=== PATIENT | female | born 1950 | race Caucasian/White ===

== ENCOUNTER → 2016-09-09 | Outpatient (CLI) | payer MEDICARE ==
[~2016-09-09] MED LIST: ADVIL200 MG PO; CIPRO 500MG TA500 MG PO; DIOVAN HCT 25 M1 TA1 PO; FERROUSAL325 MG PO; HYZAAR 25 MG-101 TAB PO; LASIX 20MG TABL20 MG PO; LEVOXYL0.112 MG PO; METRONIDAZOLE500 MG PO; RESTORIL30 MG; RESTORIL30 MG PO; RISPERDAL 1M1 MG/TAB PO; TOPROL XL 50MG50 MG PO; ZOLOFT 100MG100 MG PO
== END ==
LOC: BHSO 15:24
DX: F20.9 Schizophrenia, unspecified (principal)

== ENCOUNTER 2016-11-10 10:54 | Outpatient (RCR) | payer MEDICARE ==
[2016-11-10] VITALS (8 sets, daily range): BP systolic 123–143; BP diastolic 49–84; PULSE 68–82; TEMP 98.1–98.6
[~2016-11-10 10:54] MED LIST changes: -ADVIL200 MG PO; -FERROUSAL325 MG PO; -HYZAAR 25 MG-101 TAB PO; -LASIX 20MG TABL20 MG PO; -RESTORIL30 MG; -RISPERDAL 1M1 MG/TAB PO; -TOPROL XL 50MG50 MG PO; -ZOLOFT 100MG100 MG PO
[2016-11-10 19:18] LABS: HEMATOCRIT 28.7 % (37.0-47.0); HEMOGLOBIN 8.9 g/dl (12.5-16.0)
== END 2016-11-10 19:30 | disposition home or self-care (01) ==
LOC: EUO 10:54
PROVIDERS: Internal Medicine
DX: D50.9 Iron deficiency anemia, unspecified (principal); E66.9 Obesity, unspecified
CPT/HCPCS: J7050; P9016

== ENCOUNTER 2016-12-03 15:00 | Outpatient (CLI) | payer MEDICARE ==
[~2016-12-03] VITALS: Ht 162.6 cm; Wt 159.0 kg
[2016-12-03 15:33] VITALS: BP 144/62; PULSE 76; TEMP 97.8
== END 2016-12-03 17:41 | disposition home or self-care (01) ==
LOC: EUO 15:00
DX: N18.4 Chronic kidney disease, stage 4 (severe) (principal); D63.1 Anemia in chronic kidney disease; Z79.899 Other long term (current) drug therapy
CPT/HCPCS: J0881

== ENCOUNTER 2016-12-10 13:00 | Day surgery (SDC) | payer MEDICARE ==
[~2016-12-10] VITALS: Ht 162.6 cm; Wt 161.4 kg
[2016-12-10] MEDS ORDERED: HYZAAR 25 MG-101 TAB PO (13:22)
[2016-12-10] MEDS ORDERED: TOPROL XL 50MG50 MG PO (13:23)
[2016-12-10] MEDS ORDERED: RISPERDAL 1M1 MG/TAB PO (13:24)
[2016-12-10] MEDS ORDERED: ZOLOFT 100MG100 MG PO (13:24)
[2016-12-10] MEDS ORDERED: FERROUSAL325 MG PO (13:25)
[2016-12-10] MEDS ORDERED: RESTORIL30 MG (13:25)
[2016-12-10] MEDS ORDERED: ADVIL200 MG PO (13:26)
[2016-12-10] MEDS ORDERED: LASIX 20MG TABL20 MG PO (13:26)
[2016-12-10 13:44] VITALS: BP 140/91; PULSE 82; TEMP 98.1
[2016-12-10 15:10] VITALS: BP 145/68; PULSE 78; TEMP 97.8
[2016-12-10 15:15] VITALS: BP 122/75; PULSE 76
[2016-12-10 15:30] VITALS: BP 120/69; PULSE 66
[2016-12-10 15:45] VITALS: BP 106/72; PULSE 63
== END 2016-12-10 16:40 | disposition home or self-care (01) ==
LOC: SDCO 13:00
DX: D12.5 Benign neoplasm of sigmoid colon (principal); D50.0 Iron deficiency anemia secondary to blood loss (chronic); K57.30 Diverticulosis of large intestine without perforation or abscess without bleeding; K44.9 Diaphragmatic hernia without obstruction or gangrene; I12.9 Hypertensive chronic kidney disease with stage 1 through stage 4 chronic kidney disease, or unspecified chronic kidney disease; E03.9 Hypothyroidism, unspecified; N18.9 Chronic kidney disease, unspecified; G47.33 Obstructive sleep apnea (adult) (pediatric); F41.9 Anxiety disorder, unspecified; F32.9 Major depressive disorder, single episode, unspecified; E66.01 Morbid (severe) obesity due to excess calories; Z90.49 Acquired absence of other specified parts of digestive tract
CPT/HCPCS: J2704; J7030

== ENCOUNTER → 2016-12-14 | Outpatient (CLI) | payer MEDICARE ==
[~2016-12-14] MED LIST changes: +ADVIL200 MG PO; +FERROUSAL325 MG PO; +HYZAAR 25 MG-101 TAB PO; +LASIX 20MG TABL20 MG PO; +RESTORIL30 MG; +RISPERDAL 1M1 MG/TAB PO; +TOPROL XL 50MG50 MG PO; +ZOLOFT 100MG100 MG PO
== END ==
LOC: COL.RAD 09:31
DX: N18.4 Chronic kidney disease, stage 4 (severe) (principal); Z90.5 Acquired absence of kidney

== ENCOUNTER 2017-01-11 13:07 | Outpatient (CLI) | payer MEDICARE ==
[~2017-01-11] VITALS: Ht 162.6 cm; Wt 162.2 kg
[~2017-01-11 13:07] MED LIST changes: -RESTORIL30 MG
[2017-01-11] MEDS ORDERED: ATARAX 25MG25 MG/TAB PO (13:29)
[2017-01-11] MEDS ORDERED: LEVOXYL0.125 MG PO (13:30)
[2017-01-11] MEDS ORDERED: PROVERA5 MG PO (13:32)
[2017-01-11 13:45] LABS: ALBUMIN 3.7 gm/dL (3.5-5.0); CREATININE, serum 3.66 mg/dL (0.52-1.25); PHOSPHOROUS 5.6 mg/dL (2.5-4.5); POTASSIUM 4.2 mmol/L (3.4-5.0)
[2017-01-11 14:01] LABS: MEAN CELL VOLUME 88 fl (80.0-100.0); MEAN CORPUSCULAR HGB CONC 30 g/dl (33.0-37.0); MEAN PLATELET VOLUME 9.3 fl (7.4-10.4); PLATELET COUNT 197 K/mm3 (130-400); RED BLOOD COUNT 2.73 M/mm3 (4.10-5.30); REDCELL DISTRIBUTION WIDTH-CV 18.6 % (11.5-14.5); WHITE BLOOD COUNT 6.2 K/mm3 (4.8-10.8)
[2017-01-11 14:03] LABS: ADD PATHOLOGY DIFF REVIEW NO; HEMOGLOBIN 7.3 g/dl (12.5-16.0); MEAN CORPUSCULAR HEMOGLOBIN 27 pg (27.0-31.0)
[2017-01-11 14:25] LABS: BAND 11 % (0-10); EOSINOPHIL 3 % (0-4); METAMYELOCYTE 1 % (0-0); MYELOCYTE 2 % (0-0); NEUTROPHILS 68 % (42.0-75.2); PLATELET ESTIMATE NORMAL (NORMAL); TOTAL CELLS COUNTED 100
[2017-01-11 14:29] VITALS: BP 145/71; PULSE 66; TEMP 98.1
[2017-01-11 14:50] VITALS: BP 96/57; PULSE 88; TEMP 98.2
== END 2017-01-11 15:10 | disposition home or self-care (01) ==
LOC: EUO 13:07
PROVIDERS: Internal Medicine Nephrology
DX: N18.4 Chronic kidney disease, stage 4 (severe) (principal); N17.8 Other acute kidney failure; D63.1 Anemia in chronic kidney disease
CPT/HCPCS: J0881

== ENCOUNTER 2017-02-17 14:09 | Outpatient (CLI) | payer MEDICARE ==
[~2017-02-17 14:09] MED LIST changes: +ATARAX 25MG25 MG/TAB PO; +LEVOXYL0.125 MG PO; +PROVERA5 MG PO
[2017-02-17 14:52] VITALS: BP 119/58; PULSE 69; TEMP 98.4
== END 2017-02-17 15:02 | disposition home or self-care (01) ==
LOC: EUO 14:09
DX: N18.5 Chronic kidney disease, stage 5 (principal); D63.1 Anemia in chronic kidney disease
CPT/HCPCS: J0881

== ENCOUNTER → 2017-03-03 | Outpatient (CLI) | payer MEDICARE | LOC: BHSO 15:08 | DX: F20.9 Schizophrenia, unspecified (principal) ==

== ENCOUNTER 2017-03-24 14:09 | Outpatient (CLI) | payer MEDICARE ==
[2017-03-24 14:25] VITALS: BP 128/50; PULSE 77; TEMP 97.4
== END 2017-03-24 16:16 | disposition home or self-care (01) ==
LOC: EUO 14:09
DX: N18.5 Chronic kidney disease, stage 5 (principal); D63.1 Anemia in chronic kidney disease
CPT/HCPCS: J0881

== ENCOUNTER 2017-06-16 15:14 | Outpatient (CLI) | payer MEDICARE ==
[~2017-06-16] VITALS: Ht 162.6 cm; Wt 165.0 kg
[2017-06-16 15:49] VITALS: BP 155/86; PULSE 65; TEMP 98.8
== END 2017-06-16 16:20 | disposition home or self-care (01) ==
LOC: EUO 15:14
DX: N18.5 Chronic kidney disease, stage 5 (principal); D63.1 Anemia in chronic kidney disease; E83.39 Other disorders of phosphorus metabolism
CPT/HCPCS: J0881

== ENCOUNTER → 2017-08-04 | Outpatient (CLI) | payer MEDICARE ==
[~2017-08-04] VITALS: Ht 162.6 cm; Wt 169.5 kg
[2017-08-04 13:25] LABS: MEAN CELL VOLUME 90 fl (80.0-100.0); MEAN CORPUSCULAR HGB CONC 30 g/dl (33.0-37.0); MEAN PLATELET VOLUME 8.6 fl (7.4-10.4); PLATELET COUNT 185 K/mm3 (130-400); RED BLOOD COUNT 2.62 M/mm3 (4.10-5.30); REDCELL DISTRIBUTION WIDTH-CV 15.1 % (11.5-14.5)
[2017-08-04 13:32] LABS: HEMATOCRIT 23.6 % (37.0-47.0); HEMOGLOBIN 7.1 g/dl (12.5-16.0); MEAN CORPUSCULAR HEMOGLOBIN 27 pg (27.0-31.0)
[2017-08-04 13:40] VITALS: BP 149/66; PULSE 72; TEMP 97.9
[2017-08-04 13:55] LABS: ANISOCYTOSIS 3+; BAND 4 % (0-10); EOSINOPHIL 4 % (0-4); HYPOCHROMIA 2+; LYMPHOCYTE 16 % (20.0-51.0); MICROCYTOSIS 1+; NEUTROPHILS 75 % (42.0-75.2); PLATELET ESTIMATE NORMAL (NORMAL)
[2017-08-04 13:56] LABS: POLYCHROMASIA 1+
== END ==
LOC: EUO 07-21 14:00
PROVIDERS: Internal Medicine
DX: N18.5 Chronic kidney disease, stage 5 (principal); D63.1 Anemia in chronic kidney disease
CPT/HCPCS: J0881

== ENCOUNTER 2017-08-11 12:48 | Outpatient (RCR) | payer MEDICARE ==
[2017-08-11 15:11] VITALS: BP 158/73; PULSE 70; TEMP 98.6
[2017-08-11 15:35] VITALS: BP 161/85; PULSE 68; TEMP 98.6
[2017-08-11 15:50] VITALS: BP 164/84; PULSE 66; TEMP 98.7
[2017-08-11 16:20] VITALS: BP 166/83; PULSE 69; TEMP 99
[2017-08-11 17:16] VITALS: BP 183/89; PULSE 70; TEMP 98.6
== END 2017-08-11 17:41 | disposition home or self-care (01) ==
LOC: EUO 12:48
DX: N18.5 Chronic kidney disease, stage 5 (principal); D63.1 Anemia in chronic kidney disease; N93.9 Abnormal uterine and vaginal bleeding, unspecified
CPT/HCPCS: J7050; P9016

== ENCOUNTER → 2017-08-25 | Outpatient (CLI) | payer MEDICARE ==
[~2017-08-25] VITALS: Ht 162.6 cm; Wt 166.0 kg
[2017-08-25 13:29] VITALS: BP 152/69; PULSE 73; TEMP 98.2
== END ==
LOC: EUO 08-18 13:00
DX: N18.5 Chronic kidney disease, stage 5 (principal); D63.1 Anemia in chronic kidney disease; N93.9 Abnormal uterine and vaginal bleeding, unspecified
CPT/HCPCS: J2916; J7040

== ENCOUNTER → 2017-09-01 | Outpatient (CLI) | payer MEDICARE | LOC: BHSO 15:41 | DX: F20.9 Schizophrenia, unspecified (principal) | CPT/HCPCS: G0463 ==

== ENCOUNTER 2017-09-15 15:07 | Outpatient (CLI) | payer MEDICARE ==
[~2017-09-15] VITALS: Ht 162.6 cm; Wt 165.0 kg
[2017-09-15 15:23] VITALS: BP 134/66; PULSE 66; TEMP 98.6
[2017-09-15 15:36] LABS: CALCIUM 9.7 mg/dL (8.4-10.2); CREATININE, serum 3.72 mg/dL (0.52-1.25); POTASSIUM 3.8 mmol/L (3.4-5.0)
== END 2017-09-15 16:01 | disposition home or self-care (01) ==
LOC: EUO 15:07
PROVIDERS: Internal Medicine
DX: N18.5 Chronic kidney disease, stage 5 (principal); D63.1 Anemia in chronic kidney disease
CPT/HCPCS: J0881

== ENCOUNTER 2017-10-27 14:58 | Outpatient (CLI) | payer MEDICARE ==
[~2017-10-27] VITALS: Ht 162.6 cm; Wt 169.0 kg
[2017-10-27 15:12] VITALS: BP 153/69; PULSE 74; TEMP 98.1
== END 2017-10-27 16:06 | disposition home or self-care (01) ==
LOC: EUO 14:58
DX: N18.5 Chronic kidney disease, stage 5 (principal); D63.1 Anemia in chronic kidney disease
CPT/HCPCS: J0881

== ENCOUNTER 2017-12-15 16:01 | Outpatient (CLI) | payer MEDICARE ==
[~2017-12-15] VITALS: Ht 162.6 cm; Wt 167.2 kg
[2017-12-15 16:40] VITALS: BP 137/70; PULSE 68; TEMP 98.4
== END 2017-12-15 16:41 | disposition home or self-care (01) ==
LOC: EUO 16:01
DX: N18.5 Chronic kidney disease, stage 5 (principal); D63.1 Anemia in chronic kidney disease
CPT/HCPCS: J0881

== ENCOUNTER 2018-03-02 12:40 | Outpatient (RCR) | payer MEDICARE ==
[~2018-03-02] VITALS: Ht 162.6 cm; Wt 164.2 kg
[2018-03-02] VITALS (8 sets, daily range): BP systolic 109–138; BP diastolic 50–78; PULSE 63–77; TEMP 97.8–98.1
== END 2018-03-02 19:00 | disposition home or self-care (01) ==
LOC: EUO 12:40
DX: N18.9 Chronic kidney disease, unspecified (principal); D63.1 Anemia in chronic kidney disease
CPT/HCPCS: J7050; P9016

== ENCOUNTER 2018-03-21 14:55 | Outpatient (CLI) | payer MEDICARE ==
[~2018-03-21] VITALS: Ht 162.6 cm; Wt 170.0 kg
[2018-03-21 15:26] VITALS: BP 133/59; PULSE 69; TEMP 98.4
[2018-03-21 16:02] VITALS: BP 113/56; PULSE 58; TEMP 98.4
== END 2018-03-21 15:36 | disposition home or self-care (01) ==
LOC: EUO 14:55
DX: N18.5 Chronic kidney disease, stage 5 (principal); D63.1 Anemia in chronic kidney disease
CPT/HCPCS: J0881

== ENCOUNTER 2018-03-30 10:03 | Day surgery (SDC) | payer MEDICARE ==
[~2018-03-30] VITALS: Ht 162.6 cm; Wt 169.5 kg
[2018-03-30] MEDS ORDERED: ADALAT CC30 MG PO (10:58)
[2018-03-30] MEDS ORDERED: LIPITOR 10MG10 MG PO (11:02)
[2018-03-30 11:17] VITALS: BP 144/67; PULSE 72; TEMP 97.5
[2018-03-30 12:22] VITALS: BP 126/66; PULSE 69; TEMP 97.7
[2018-03-30 12:30] VITALS: BP 115/60; PULSE 67
[2018-03-30 12:45] VITALS: BP 127/53; PULSE 68
[2018-03-30 13:00] VITALS: BP 126/62; PULSE 65
[2018-03-30 13:15] VITALS: BP 124/56; PULSE 63
== END 2018-03-30 14:20 | disposition home or self-care (01) ==
LOC: SDCO 10:03
DX: N95.0 Postmenopausal bleeding (principal); E03.9 Hypothyroidism, unspecified; E11.9 Type 2 diabetes mellitus without complications; E78.00 Pure hypercholesterolemia, unspecified; E78.5 Hyperlipidemia, unspecified; D64.9 Anemia, unspecified; F41.9 Anxiety disorder, unspecified; F32.9 Major depressive disorder, single episode, unspecified; M19.90 Unspecified osteoarthritis, unspecified site; G47.33 Obstructive sleep apnea (adult) (pediatric); I12.9 Hypertensive chronic kidney disease with stage 1 through stage 4 chronic kidney disease, or unspecified chronic kidney disease; N18.9 Chronic kidney disease, unspecified; E66.01 Morbid (severe) obesity due to excess calories; Z68.44 Body mass index [BMI] 60.0-69.9, adult; Z88.5 Allergy status to narcotic agent; Z88.2 Allergy status to sulfonamides; Z88.0 Allergy status to penicillin; Z88.8 Allergy status to other drugs, medicaments and biological substances; Z85.43 Personal history of malignant neoplasm of ovary; Z90.49 Acquired absence of other specified parts of digestive tract; Z90.5 Acquired absence of kidney; Z82.49 Family history of ischemic heart disease and other diseases of the circulatory system; Z83.3 Family history of diabetes mellitus; Z82.3 Family history of stroke
CPT/HCPCS: J2704; J7030

== ENCOUNTER → 2018-05-16 | Outpatient (CLI) | payer MEDICARE ==
[~2018-05-16] MED LIST changes: +ADALAT CC30 MG PO; +LIPITOR 10MG10 MG PO
== END ==
LOC: COL.RAD 13:53
DX: N85.2 Hypertrophy of uterus (principal); N26.1 Atrophy of kidney (terminal); K46.9 Unspecified abdominal hernia without obstruction or gangrene; E66.01 Morbid (severe) obesity due to excess calories; Z98.890 Other specified postprocedural states; Z90.49 Acquired absence of other specified parts of digestive tract; Z87.19 Personal history of other diseases of the digestive system; Z90.5 Acquired absence of kidney

== ENCOUNTER → 2018-05-18 | Outpatient (CLI) | payer MEDICARE | LOC: BHSO 15:02 | DX: F20.9 Schizophrenia, unspecified (principal) | CPT/HCPCS: G0463 ==

== ENCOUNTER → 2018-06-08 | Outpatient (CLI) | payer MEDICARE | LOC: EUO 06-06 15:00 | DX: D63.1 Anemia in chronic kidney disease (principal); N18.5 Chronic kidney disease, stage 5 | CPT/HCPCS: J0881 ==

== ENCOUNTER 2018-08-03 15:02 | Outpatient (CLI) | payer MEDICARE ==
[~2018-08-03] VITALS: Ht 162.6 cm; Wt 163.1 kg
[~2018-08-03 15:02] MED LIST changes: -LEVOXYL0.125 MG PO; +LEVOXYL0.15 MG PO
[2018-08-03] MEDS ORDERED: MEGACE 40MG40 MG/TAB PO (16:01)
[2018-08-03 16:04] VITALS: BP 147/78; PULSE 69; TEMP 98
== END 2018-08-03 16:04 | disposition home or self-care (01) ==
LOC: EUO 15:02
DX: N18.5 Chronic kidney disease, stage 5 (principal); D63.1 Anemia in chronic kidney disease
CPT/HCPCS: J0881

== ENCOUNTER 2018-08-24 16:01 | Outpatient (CLI) | payer MEDICARE ==
[~2018-08-24] VITALS: Ht 162.6 cm; Wt 162.5 kg
[~2018-08-24 16:01] MED LIST changes: +MEGACE 40MG40 MG/TAB PO
[2018-08-24 16:51] VITALS: BP 141/65; PULSE 62; TEMP 97.6
== END 2018-08-24 17:20 | disposition home or self-care (01) ==
LOC: EUO 16:01
DX: N18.5 Chronic kidney disease, stage 5 (principal); D63.1 Anemia in chronic kidney disease
CPT/HCPCS: J0881

== ENCOUNTER 2018-10-26 15:04 | Outpatient (CLI) | payer MEDICARE ==
[2018-10-26 15:30] VITALS: BP 135/81; PULSE 64; TEMP 98.2
== END 2018-10-26 16:09 | disposition home or self-care (01) ==
LOC: EUO 15:04
DX: D63.1 Anemia in chronic kidney disease (principal); N18.5 Chronic kidney disease, stage 5
CPT/HCPCS: J0882

== ENCOUNTER → 2018-11-09 | Outpatient (CLI) | payer MEDICARE | LOC: BHSO 15:05 | DX: F20.9 Schizophrenia, unspecified (principal) | CPT/HCPCS: G0463 ==

== ENCOUNTER 2018-12-08 15:05 | Outpatient (CLI) | payer MEDICARE ==
[~2018-12-08] VITALS: Ht 162.6 cm; Wt 158.0 kg
[2018-12-08 15:44] VITALS: BP 141/75; PULSE 64; TEMP 97.7
== END 2018-12-08 15:55 | disposition home or self-care (01) ==
LOC: EUO 15:05
DX: D63.1 Anemia in chronic kidney disease (principal); N18.5 Chronic kidney disease, stage 5
CPT/HCPCS: J0881; J0882

== ENCOUNTER → 2019-01-18 | Outpatient (CLI) | payer MEDICARE ==
[~2019-01-18] VITALS: Ht 162.6 cm; Wt 162.0 kg
[2019-01-18 16:41] VITALS: BP 148/85; PULSE 72; TEMP 98.3
== END ==
LOC: EUO 16:00
DX: N18.5 Chronic kidney disease, stage 5 (principal); D63.1 Anemia in chronic kidney disease
CPT/HCPCS: J0881

== ENCOUNTER 2019-03-02 15:38 | Outpatient (CLI) | payer MEDICARE ==
[~2019-03-02] VITALS: Ht 162.6 cm; Wt 160.8 kg
[2019-03-02 16:03] VITALS: BP 107/65; PULSE 63; TEMP 98
== END 2019-03-02 16:09 | disposition home or self-care (01) ==
LOC: EUO 15:38
DX: N18.5 Chronic kidney disease, stage 5 (principal); D63.1 Anemia in chronic kidney disease
CPT/HCPCS: J0882

== ENCOUNTER → 2019-03-22 | Outpatient (CLI) | payer MEDICARE | LOC: COL.VAS 03-08 13:15 | DX: N18.5 Chronic kidney disease, stage 5 (principal) | CPT/HCPCS: G0365 ==

== ENCOUNTER 2019-03-29 15:58 | Outpatient (CLI) | payer MEDICARE ==
[~2019-03-29] VITALS: Ht 162.6 cm; Wt 158.0 kg
[2019-03-29 16:25] VITALS: BP 130/90; PULSE 77; TEMP 97.7
== END 2019-03-29 18:00 | disposition home or self-care (01) ==
LOC: EUO 15:58
DX: N18.5 Chronic kidney disease, stage 5 (principal); D63.1 Anemia in chronic kidney disease
CPT/HCPCS: J0881

== ENCOUNTER 2019-05-31 15:05 | Outpatient (CLI) | payer MEDICARE ==
[~2019-05-31] VITALS: Ht 162.6 cm; Wt 159.2 kg
[2019-05-31 16:13] VITALS: BP 145/90; PULSE 104; TEMP 97.2
== END 2019-05-31 17:37 | disposition home or self-care (01) ==
LOC: EUO 15:05
DX: N18.5 Chronic kidney disease, stage 5 (principal); D63.1 Anemia in chronic kidney disease
CPT/HCPCS: J0881

== ENCOUNTER → 2019-06-14 | Outpatient (CLI) | payer MEDICARE | LOC: BHSO 13:59 | DX: F20.9 Schizophrenia, unspecified (principal) | CPT/HCPCS: G0463 ==

== ENCOUNTER 2019-06-28 15:05 | Outpatient (CLI) | payer MEDICARE ==
[~2019-06-28] VITALS: Ht 162.6 cm; Wt 156.7 kg
[2019-06-28 15:39] VITALS: BP 123/86; PULSE 78; TEMP 98.1
== END 2019-06-28 16:07 | disposition home or self-care (01) ==
LOC: EUO 15:05
DX: N18.5 Chronic kidney disease, stage 5 (principal); D63.1 Anemia in chronic kidney disease
CPT/HCPCS: J0881

== ENCOUNTER 2019-12-10 07:37 | Day surgery (SDC) | payer MEDICARE ==
[~2019-12-10] VITALS: Ht 162.6 cm; Wt 155.7 kg
[~2019-12-10 07:37] MED LIST changes: -ZOLOFT 100MG100 MG PO; +ZOLOFT 50MG50 MG PO
[2019-12-10 07:57] VITALS: BP 126/104; PULSE 74; TEMP 97.9
[2019-12-10] MEDS ORDERED: COUMADIN 5MG5 MG/TAB PO (08:31)
[2019-12-10] MEDS ORDERED: TRIAMCINOLONE A15 G3 TP (08:31)
[2019-12-10 08:39] LABS: CALCIUM 9.6 mg/dL (8.4-10.2); CREATININE, serum 4.91 (0.52-1.25); MAGNESIUM 2.1 mg/dL (1.6-2.3)
[2019-12-10 08:40] LABS: MEAN CELL VOLUME 91 fl (80.0-100.0); MEAN CORPUSCULAR HGB CONC 31 g/dl (33.0-37.0); MEAN PLATELET VOLUME 9.6 fl (7.4-10.4); PLATELET COUNT 179 K/mm3 (130-400); RED BLOOD COUNT 3.49 M/mm3 (4.10-5.30); REDCELL DISTRIBUTION WIDTH-CV 12.8 % (11.5-14.5)
[2019-12-10 08:46] LABS: HEMATOCRIT 31.8 % (37.0-47.0); HEMOGLOBIN 9.9 g/dl (12.5-16.0); MEAN CORPUSCULAR HEMOGLOBIN 28 pg (27.0-31.0)
[2019-12-10 08:47] LABS: INR 2.2 (0.8-3.0); PROTHROMBIN TIME 24.4 SECONDS (9.7-12.8)
[2019-12-10 08:51] LABS: PARTIAL THROMBOPLASTIN TIME 41.5 SECONDS (26.0-37.0)
[2019-12-10] MEDS ORDERED: MULTAQ400 MG PO (08:58)
[2019-12-10 09:05] VITALS: BP 99/53; PULSE 60
[2019-12-10 09:10] VITALS: BP 101/59; PULSE 58
[2019-12-10 09:10] LABS: THYROID STIMULATING HORMONE 1.29 uIU/mL (0.465-4.680)
[2019-12-10 09:25] VITALS: BP 108/69; PULSE 56
[2019-12-10 09:40] VITALS: BP 106/74; PULSE 57
[2019-12-10 09:55] VITALS: BP 125/69; PULSE 57
--- NOTE | 2019-12-10 10:15 | NUR ---
Pt tolerating PO without issue. DC instructions reviewed with pt and prior to discharge. Both express understanding. Pt is assisted to wheelchair, then out to car and care turned over to . IV was DC'd with catheter intact, and bleeding at site controlled.
== END 2019-12-10 10:15 | disposition home or self-care (01) ==
LOC: COL.CAR 07:37
PROVIDERS: Internal Medicine Cardiovascular Disease
DX: I48.0 Paroxysmal atrial fibrillation (principal); E78.5 Hyperlipidemia, unspecified; G47.33 Obstructive sleep apnea (adult) (pediatric); E11.22 Type 2 diabetes mellitus with diabetic chronic kidney disease; I12.9 Hypertensive chronic kidney disease with stage 1 through stage 4 chronic kidney disease, or unspecified chronic kidney disease; N18.9 Chronic kidney disease, unspecified; E03.9 Hypothyroidism, unspecified; F32.9 Major depressive disorder, single episode, unspecified; M19.90 Unspecified osteoarthritis, unspecified site; E66.01 Morbid (severe) obesity due to excess calories; Z90.5 Acquired absence of kidney; D63.1 Anemia in chronic kidney disease; Z88.5 Allergy status to narcotic agent; Z88.8 Allergy status to other drugs, medicaments and biological substances; Z88.0 Allergy status to penicillin; Z88.2 Allergy status to sulfonamides; Z79.01 Long term (current) use of anticoagulants
CPT/HCPCS: J2704

== ENCOUNTER → 2019-12-13 | Outpatient (CLI) | payer MEDICARE ==
[~2019-12-13] MED LIST changes: +COUMADIN 5MG5 MG/TAB PO; +MULTAQ400 MG PO; +TRIAMCINOLONE A15 G3 TP
== END ==
LOC: BHSO 14:47
DX: F20.9 Schizophrenia, unspecified (principal)
CPT/HCPCS: G0463

== ENCOUNTER 2020-04-29 22:07 | Inpatient (IN) | payer MEDICARE ==
[~2020-04-29] VITALS: Ht 165.1 cm; Wt 159.1 kg
[~2020-04-29 22:07] MED LIST changes: +MELATONIN5 M1 SL; +NYAMYC100000 U/G TP; +PACERONE400 MG PO
[2020-04-30 08:00] VITALS: BP 128/50; PULSE 79; TEMP 98.7
[2020-04-30 12:00] VITALS: BP 135/48; PULSE 75; TEMP 98.1
[2020-04-30 13:53] LABS: COLLECTION METHOD CLEAN CATCH
[2020-04-30 13:58] LABS: ALBUMIN 3.9 gm/dL (3.5-5.0); BILIRUBIN,TOTAL 0.5 mg/dL (0.0-1.0); CALCIUM 9.4 mg/dL (8.4-10.2); CREATININE, serum 5.83 (0.52-1.25); POTASSIUM 3.6 mmol/L (3.4-5.0); TOTAL PROTEIN 7.2 gm/dL (6.4-8.2)
[2020-04-30 13:59] LABS: TROPONIN-I 0.058 ng/mL (0.000-0.035)
[2020-04-30 14:00] LABS: PH 5 (5-8); URINE APPEARANCE Clear; URINE COLOR Yellow; URINE PROTEIN(semi-quant) 2+ (NEGATIVE)
[2020-04-30 14:01] LABS: MUCOUS Present /lpf; SQUAMOUS EPITHELIAL 0-2 /hpf; URINE BILIRUBIN Negative (NEGATIVE); URINE BLOOD 3+ (NEGATIVE); URINE GLUCOSE Negative (NEGATIVE); URINE KETONE Negative (NEGATIVE); URINE LEUKOCYTE ESTERASE Negative (NEGATIVE); URINE NITRATE Negative (NEGATIVE); URINE UROBILINOGEN Negative (NEGATIVE)
[2020-04-30 14:02] LABS: HEMATOCRIT 27.6 % (37.0-47.0); HEMOGLOBIN 8.6 g/dl (12.5-16.0); MEAN CELL VOLUME 93 fl (80.0-100.0); MEAN CORPUSCULAR HEMOGLOBIN 29 pg (27.0-31.0); MEAN CORPUSCULAR HGB CONC 29 g/dl (33.0-37.0); PLATELET COUNT 198 K/mm3 (130-400); RED BLOOD COUNT 2.96 M/mm3 (4.10-5.30); REDCELL DISTRIBUTION WIDTH-CV 14.9 % (11.5-14.5)
[2020-04-30 14:03] LABS: BAND 12 % (0-10); LYMPHOCYTE 1 % (20.0-51.0); MEAN PLATELET VOLUME 10.1 fl (7.4-10.4); METAMYELOCYTE 1 % (0-0); NEUTROPHILS 84 % (42.0-75.2); PLATELET ESTIMATE NORMAL (NORMAL)
[2020-04-30 14:04] LABS: HYPOCHROMIA 2+; INR 2.1 (0.8-3.0); PARTIAL THROMBOPLASTIN TIME 32.2 SECONDS (26.0-37.0); PROTHROMBIN TIME 23.5 SECONDS (9.7-12.8)
[2020-04-30 14:10] LABS: HEMATOCRIT 24.9 % (37.0-47.0); HEMOGLOBIN 7.8 g/dl (12.5-16.0); MEAN CELL VOLUME 92 fl (80.0-100.0); MEAN CORPUSCULAR HEMOGLOBIN 29 pg (27.0-31.0); MEAN CORPUSCULAR HGB CONC 31 g/dl (33.0-37.0); MEAN PLATELET VOLUME 10.2 fl (7.4-10.4); PLATELET COUNT 169 K/mm3 (130-400); RED BLOOD COUNT 2.71 M/mm3 (4.10-5.30); REDCELL DISTRIBUTION WIDTH-CV 14.8 % (11.5-14.5)
[2020-04-30 14:11] LABS: BASO % 0.2 % (0.0-2.0); EOS # 0.1 (0.0-0.7); EOS % 0.4 % (0-4.0); GRAN # 10.5 (1.4-6.5); GRAN % 85.4 % (42.2-75.2); LYMPH # 0.5 (1.2-3.4); LYMPH % 4.1 % (20.0-51.0); MONO # 0.7 (0.1-0.6); MONO % 5.7 % (1.7-9.3)
[2020-04-30 14:12] LABS: CALCIUM 9.1 mg/dL (8.4-10.2); CREATININE, serum 5.64 (0.52-1.25); POTASSIUM 3.5 mmol/L (3.4-5.0)
[2020-04-30 14:13] LABS: ALBUMIN 3.2 gm/dL (3.5-5.0); BILIRUBIN,TOTAL 0.4 mg/dL (0.0-1.0); THYROID STIMULATING HORMONE 6.45 uIU/mL (0.465-4.680); TOTAL PROTEIN 6.3 gm/dL (6.4-8.2); TROPONIN-I 0.067 ng/mL (0.000-0.035)
--- NOTE | 2020-04-30 15:30 | NUR ---
LUCAS met with the patient to discuss discharge plan. The patient lives in [place] with her , Jeffry (ph#[phone]). She reports needing some assistance with bathing and tolieting and has a walker. The patient's PCP is Dr. Adele Diaz and she receives her medications from [facility]. She reports no difficulties obtaining her meds. The patient does not have a DPOA-HC, but she was interested in obtaining a form. LUCAS provided. PT worked with the patient and recommend SNF. She was an assist of two. SW discussed this with the patient. The patient was agreeable to post-acute rehab and for SW to send referrals to the facilities in [place]. LUCAS contacted and faxed a referral to [facility], and [facility]. Awaiting screens.
[2020-04-30 16:00] VITALS: BP 139/52; PULSE 81; TEMP 97.9
[2020-04-30] MEDS ORDERED: PACERONE200 MG PO ×2 (16:32→16:34)
--- NOTE | 2020-04-30 18:00 | NUR ---
Patient has been doing well. No complaints of pain today. Her medication list has been updated. Went through the meds with patient, she could not remember her Losartan dose. She did not get up today because of her edema to feet and legs. No other changes at this time. Call light within reach. Dr Tai aware that she is admitted.
--- NOTE | 2020-04-30 19:30 | NUR ---
Pt. laying in bed at this time. Pt. is A&OX3, assessment complete. Pt. denies pain or other needs, call light within reach.
[2020-04-30] MEDS ORDERED: MULTAQ400 MG PO (19:41)
[2020-04-30] MEDS ORDERED: HYZAAR 25 MG-101 TAB PO (19:41)
[2020-04-30 20:25] VITALS: BP 129/46; PULSE 79; TEMP 98.7
[2020-04-30 23:39] VITALS: BP 143/57; PULSE 90; TEMP 98.9
[2020-05-01 04:38] VITALS: BP 133/58; PULSE 95; TEMP 99.2
[2020-05-01 07:27] LABS: MEAN CELL VOLUME 91 fl (80.0-100.0); MEAN CORPUSCULAR HGB CONC 31 g/dl (33.0-37.0); MEAN PLATELET VOLUME 10.2 fl (7.4-10.4); PLATELET COUNT 190 K/mm3 (130-400); RED BLOOD COUNT 2.77 M/mm3 (4.10-5.30)
[2020-05-01 07:43] LABS: HEMATOCRIT 25.3 % (37.0-47.0); HEMOGLOBIN 7.8 g/dl (12.5-16.0); MEAN CORPUSCULAR HEMOGLOBIN 28 pg (27.0-31.0)
[2020-05-01 07:52] LABS: CALCIUM 9.2 mg/dL (8.4-10.2); CREATININE, serum 5.99 (0.52-1.25); MAGNESIUM 2.2 mg/dL (1.6-2.3); PHOSPHOROUS 4.8 mg/dL (2.5-4.5); POTASSIUM 3.6 mmol/L (3.4-5.0)
[2020-05-01 08:26] VITALS: BP 125/52; PULSE 91; TEMP 97.6
[2020-05-01 09:04] LABS: BAND 6 % (0-10); EOSINOPHIL 2 % (0-4); HYPOCHROMIA 1+; LYMPHOCYTE 12 % (20.0-51.0); METAMYELOCYTE 1 % (0-0); NEUTROPHILS 73 % (42.0-75.2); PLATELET ESTIMATE NORMAL (NORMAL)
--- NOTE | 2020-05-01 09:45 | NUR ---
Initial visit; Patient thanked Flag Decorator for looking in on her, offering God's blessings and keeping her in map clerk's prayers.
[2020-05-01 12:38] VITALS: BP 108/62; PULSE 105; TEMP 97.7
[2020-05-01] MEDS ORDERED: LASIX 20MG TABL20 MG PO (13:14)
[2020-05-01] MEDS ORDERED: MYCOSTATIN100000 U/1 TP (13:16)
[2020-05-01] MEDS ORDERED: HYZAAR 25 MG-101 TAB PO (13:17)
[2020-05-01 14:22] LABS: URINE PROTEIN:CREAT RATIO 1.47 (0.00-0.14)
--- NOTE | 2020-05-01 14:46 | NUR ---
LUCAS attempted to contact the patient's to discuss discharge plan. LUCAS left him a voicemail. LUCAS contacted and faxed updates to [facility], and [facility].
[2020-05-01 16:19] VITALS: BP 124/64; PULSE 123; TEMP 97.4
--- NOTE | 2020-05-01 18:00 | NUR ---
Patient did ok today. She got up to the chair for about an hour this morning. Minimal complaints of pain. No complaints of nausea. She will be getting screened for skilled care. Her is worried about her coming home. Her edema and reddness to her right foot/ankle is getting worse today. No drainage or oozing from wound noted. No other changes at this time. Call light within reach.
[2020-05-01 19:12] LABS: IRON,SERUM 18 ug/dL (35-150)
[2020-05-01 19:21] LABS: TOTAL IRON BINDING CAPACITY 216 ug/dL (265-497)
--- NOTE | 2020-05-01 20:00 | NUR ---
Resting in bed. Assessment complete. Left lower lobe crackles present. Heart sound normals. Bowels active x4. Pulses present. Bilateral lower extremity edema +3. Right lower extremity erythema, swelling, pain, purplish discoloration with a large fluid filled blister to upper posterior lower extremity. Reports 7/10 left shoulder pain. Given PRN tylenol. Fistula to left upper arm bruit and thrill present. INT left hand without complication. Denies other needs at this time. Call light in reach.
[2020-05-01 21:25] VITALS: BP 117/62; PULSE 97; TEMP 98.9
--- NOTE | 2020-05-01 23:23 | NUR ---
Resting in bed. Denies needs. Call light in reach.
[2020-05-01 23:50] VITALS: BP 115/80; PULSE 110; TEMP 98.9
[2020-05-02 03:39] VITALS: BP 127/55; PULSE 87; TEMP 97.9
--- NOTE | 2020-05-02 06:24 | NUR ---
Patient required PRN tylenol for pain during night. Otherwise uneventful night. Resting in bed this AM. Patient refused repositioning during night.
[2020-05-02 06:55] LABS: MEAN CELL VOLUME 91 fl (80.0-100.0); MEAN CORPUSCULAR HGB CONC 30 g/dl (33.0-37.0); MEAN PLATELET VOLUME 9.9 fl (7.4-10.4); PLATELET COUNT 214 K/mm3 (130-400); RED BLOOD COUNT 2.78 M/mm3 (4.10-5.30)
[2020-05-02 07:03] LABS: HEMATOCRIT 25.4 % (37.0-47.0); HEMOGLOBIN 7.7 g/dl (12.5-16.0); MEAN CORPUSCULAR HEMOGLOBIN 28 pg (27.0-31.0)
[2020-05-02 07:10] LABS: CALCIUM 9.1 mg/dL (8.4-10.2); CREATININE, serum 5.98 (0.52-1.25); POTASSIUM 3.8 mmol/L (3.4-5.0)
--- NOTE | 2020-05-02 07:12 | NUR ---
Report given to LISBETH Dow
[2020-05-02 07:20] VITALS: BP 99/58; PULSE 136; TEMP 97.6
[2020-05-02 09:17] VITALS: BP 108/57; PULSE 92
--- NOTE | 2020-05-02 10:31 | NUR ---
Follow-up visit; Patient states she is doing better and thanked Food Service Attendant for looking in on her and keeping her in Food Service Attendant's prayers.
[2020-05-02 11:26] VITALS: BP 102/48; PULSE 75; TEMP 97.9
--- NOTE | 2020-05-02 14:59 | NUR ---
The patient's , Jeffry, returned LUCAS's phone call. LUCAS updated him on the d/c plan for post-acute rehab. Jeffry is in agreement to the plan. The patient is to have surgery on Tuesday. LUCAS contacted and faxed updates to [facility], [facility], and [facility]. Catrachita, at [facility], reports that they will continue to follow the patient. They will want to know plans for dialysis.
[2020-05-02 15:07] LABS: INR 2.4 (0.8-3.0); PROTHROMBIN TIME 27.3 SECONDS (9.7-12.8)
[2020-05-02 16:14] VITALS: BP 118/56; PULSE 52; TEMP 97.3
--- NOTE | 2020-05-02 19:12 | NUR ---
Patient has done well today. She was up to the chair this am. Hospitalist & Bedros rounded. Medication change made. Patient Right leg in pain, Tylenol Prn. Right leg wrapped with jacob wrap per patient request & okayed with . Blister behind patient right leg has been leaking fluid, abd on wound. Int to Right hand. Patient was provided incontinece care of a stool. Hines to DD with adequate urine output. Anesthesia rounded for procedure Tuesday, Dr. Perez notified with Inr level & Rechecked on tuesday ordered
[2020-05-02 19:49] VITALS: BP 107/60; PULSE 89; TEMP 97.5
[2020-05-03] VITALS (7 sets, daily range): BP systolic 97–148; BP diastolic 57–89; PULSE 71–137; TEMP 97.7–98.2
--- NOTE | 2020-05-03 06:00 | NUR ---
Patient has been resting well most the night. Minimal complaints of pain. No complaints of nausea. Minimal drainage from her blister throughout the night. RT changed her tubing for her cpap so she could wear it. Her old tubing was too old and the strap wouldn't stay in place. No other changes at this time. Call light within reach.
[2020-05-03 08:04] LABS: MEAN CELL VOLUME 92 fl (80.0-100.0); MEAN CORPUSCULAR HGB CONC 30 g/dl (33.0-37.0); MEAN PLATELET VOLUME 9.8 fl (7.4-10.4); PLATELET COUNT 250 K/mm3 (130-400); RED BLOOD COUNT 2.85 M/mm3 (4.10-5.30)
[2020-05-03 08:17] LABS: CALCIUM 9.2 mg/dL (8.4-10.2); CREATININE, serum 6.11 (0.52-1.25); POTASSIUM 3.8 mmol/L (3.4-5.0)
[2020-05-03 08:18] LABS: HEMATOCRIT 26.1 % (37.0-47.0); HEMOGLOBIN 7.9 g/dl (12.5-16.0); MEAN CORPUSCULAR HEMOGLOBIN 28 pg (27.0-31.0)
[2020-05-03 08:37] LABS: INR 3.5 (0.8-3.0); PROTHROMBIN TIME 39.3 SECONDS (9.7-12.8)
[2020-05-03 08:57] LABS: BAND 3 % (0-10); EOSINOPHIL 3 % (0-4); LYMPHOCYTE 17 % (20.0-51.0); NEUTROPHILS 75 % (42.0-75.2); PLATELET ESTIMATE NORMAL (NORMAL)
--- NOTE | 2020-05-03 09:45 | NUR ---
PATIENT SHIFT ASSESSMENT COMPLETE. AM MEDICATIONS ADMINISTERED. PATIENT REPOSITIONED IN BED. PATIENT GIVEN PRN PO TYLENOL FOR PAIN IN THE RLE RATED AN 8/10 ON A 0-10 SCALE THAT IS ACHY AND WORSENS WITH MOVEMENT. LD AND JAIN CARE PROVIDED. SKIN FOLDS CLEANED WITH BATH WIPES AND DESENEX POWDER APPLIED. CALL LIGHT WITHIN REACH. PATIENT DENIES ANY OTHER NEEDS AT THIS TIME.
--- NOTE | 2020-05-03 14:40 | NUR ---
RIGHT LOWER LEG DRESSING REMOVED WITH ZACH SANTOS. JEFF WRAP DRESSING WAS SATURATED THROUGHOUT THE DRESSING. SEROUS DRAINAGE PRESENT ON ABD PAD WHEN REMOVED. BLISTER TO POSTERIOR CALF INTACT, BUT IS LEAKING SEROUS DRAINAGE. RLE DRESSED WITH 2 NON-ADHERANT GAUZE PADS, 2 ABD PADS, SOFT ROLL AND TWO JEFF WRAPS FROM FOOT TO ABOVE THE KNEE. PATIENT TOLERATED WELL. PILLOW UNDER RLE OFFERED AND REFUSED BY PATIENT. FOOT OF BED ELEVATED. CALL LIGHT IN REACH. PATIENT DENIES ANY NEEDS AT THIS TIME.
--- NOTE | 2020-05-03 17:37 | NUR ---
PATIENT REPORTS THAT THE PAIN IN HER RIGHT LEG IN MUCH BETTER THIS EVENING. PATIENT RATES IT A 3/10 AT REST AND STATES THAT IT GETS WORSE WITH ACTIVITY. SCD'S APPLIED TO BLE. CALL LIGHT IN REACH. PATIENT DENIES ANY OTHER NEEDS AT THIS TIME.
--- NOTE | 2020-05-03 21:17 | NUR ---
Pt currenty sitting up in bed watching television. Pt stated that she was having pain in her right leg. Pt was given Tylenol at this time. Pt has no other concerns at this time. Pt was about to eat her dinner and is drinking fluids. Pt right leg does have some redness on her knee and on her hip area. Pt does have a jacob wrap on her right leg and it is clean dry and intact. Pt left leg does have some excoriation in her groin and inner thigh area, dexsenex powder was applied at this time. Pt has her call light within reach and her bed is in lowest posiition.
[2020-05-04 00:25] VITALS: BP 142/62; PULSE 93; TEMP 98.5
--- NOTE | 2020-05-04 01:38 | NUR ---
Pt currently resting in bed. Tele called to let me know that pt heart rate was as high as 120. Pt heart rate is currently at 90. Pt is going back to sleep but did wake up when I wanted to check her heart rate. She was moving around in bed. I'm currently at pt bedside and did notice that pt heart rate did get as high as 122 but is currently staying in the 90's. She has her call light within reach and her bed is in lowest position.
[2020-05-04 04:32] VITALS: BP 145/54; PULSE 89; TEMP 97.8
--- NOTE | 2020-05-04 06:31 | NUR ---
Pt resting in bed. She was able to take her morning medications and she has no concerns at this time.
[2020-05-04 06:53] LABS: MEAN CELL VOLUME 91 fl (80.0-100.0); MEAN CORPUSCULAR HGB CONC 31 g/dl (33.0-37.0); MEAN PLATELET VOLUME 9.7 fl (7.4-10.4); PLATELET COUNT 273 K/mm3 (130-400); RED BLOOD COUNT 2.87 M/mm3 (4.10-5.30); REDCELL DISTRIBUTION WIDTH-CV 14.8 % (11.5-14.5)
[2020-05-04 06:54] LABS: PROTHROMBIN TIME 22.5 SECONDS (9.7-12.8)
[2020-05-04 06:58] LABS: HEMATOCRIT 26.1 % (37.0-47.0); MEAN CORPUSCULAR HEMOGLOBIN 28 pg (27.0-31.0)
[2020-05-04 07:05] LABS: CREATININE, serum 5.83 (0.52-1.25); POTASSIUM 3.8 mmol/L (3.4-5.0)
[2020-05-04 07:26] LABS: BAND 3 % (0-10); BASOPHIL 3 % (0-2); EOSINOPHIL 1 % (0-4); LYMPHOCYTE 14 % (20.0-51.0); NEUTROPHILS 73 % (42.0-75.2)
[2020-05-04 07:27] LABS: HYPOCHROMIA 3+; PLATELET ESTIMATE NORMAL (NORMAL)
[2020-05-04 07:29] VITALS: BP 150/93; PULSE 86; TEMP 98.2
--- NOTE | 2020-05-04 08:05 | NUR ---
UPON ENTRY TO THE ROOM THE PATIENT IS SITTING UP IN THE BEDSIDE CHAIR FINISHING BREAKFAST. PATIENT SHIFT ASSESSMENT COMPLETE. AM MEDICATIONS ADMINISTERED. TYLENOL GIVEN WITH AM MEDS. PATIENT REPORTS THAT THE PAIN IN HER RIGHT LEG IS WORSE THIS MORNING. PATIENT REQUESTING TO LEAVE DRESSING OFF OF HER LEG TO LET IT BREATHE FOR A BIT. BLISTER TO THE BACK OF THE CALF IS DRAINING A MODERATE AMOUNT OF SEROUS FLUID. BLISTER IS FLATTER TODAY VS YESTERDAYS ASSESSMENT. ERYTHEMA TO RIGHT FOOT LEG AND DISTAL PORTION OF RIGHT UPPER THIGH. ECCHYMOSIS TO LEFT PINKY TOE NOTED. RLE LEFT OPEN TO AIR WITH CHUCKS PAD UNDERNEATH. CALL LIGHT WITHIN REACH. PATIENT DENIES ANY OTHER NEEDS AT THIS TIME. ZACH SANTOS NOTIFIED THAT THE PATIENTS LEG IS KULDIP FOR HOSPITALISTS TO ASSESS DURING ROUNDING.
--- NOTE | 2020-05-04 12:20 | NUR ---
PATIENT REPORTS THAT HER PAIN IS MUCH MORE TOLERABLE AFTER TAKING PRN NORCO. PATIENTS RLE RE-DRESSED WITH THREE NON-ADHERANT PADS, TWO ABD PADS, TWO GAUZE ROLLS AND TWO JEFF WRAP DRESSINGS, WRAPPED FROM FOOT TO DISTAL PORTION OF THE RIGHT UPPER THIGH. PATIENT TOLERATED WELL. PATIENT ASSISTED BACK TO BED WITH TWO ASSIST AND A WALKER. PATIENT REPOSITIONED IN BED. LD CARE AND CATHETER CARE PROVIDED FOR PATIENT. PANNUS AND INNER THIGHS CLEANED WITH BATH WIPES. SKIN DRIED AND DESENEX POWDER APPLIED TO PANNUS AND INNER THIGHS. CALL LIGHT WITHIN REACH. PATIENT DENIES ANY OTHER NEEDS AT THIS TIME.
[2020-05-04 12:39] VITALS: BP 130/68; PULSE 84; TEMP 98
--- NOTE | 2020-05-04 15:37 | NUR ---
PATIENT RESTING QUIETLY IN BED. PATIENT REPORTS PAIN IS CURRENTLY A A 4/10 ON A 0-10 SCALE AFTER HER SECOND DOSE OF NORCO. PATIENT DENIES ANY NEEDS AT THIS TIME.
[2020-05-04 16:32] VITALS: BP 117/56; PULSE 66; TEMP 97.6
[2020-05-04 19:50] VITALS: BP 101/48; PULSE 82; TEMP 98.1
--- NOTE | 2020-05-04 20:00 | NUR ---
Report received, assumed care for shift commander. A&Ox3. States earlier dose of pain meds has decreased pain to 1/10. Requesting HS meds/assessment be completed around 2300 so that she can get some rest. Will do assessment and meds at that time. Call light in reach. Will monitor.
--- NOTE | 2020-05-04 23:30 | NUR ---
Assessment complete. VS remain stable. A&Ox3. Rating pain 5/10 on pain scale to right lower extremity. Described pain as a constant throbbing with intermittent sharp stabs. Hydrocodone given per dr order. RIght lower extremity with jacob/gauze-CDI. Refusing to elevate. Plan of care discussed for NPO after midnight for procedures in AM. Denies questions/concerns. Call light in reach. Will monitor.
[2020-05-05 00:05] VITALS: BP 111/54; PULSE 86; TEMP 97.4
--- NOTE | 2020-05-05 02:54 | NUR ---
Resting eyes closed. No s/s of pain/discomfort noted. Call light in reach. Will monitor.
[2020-05-05 03:36] VITALS: BP 117/55; PULSE 80; TEMP 97.6
[2020-05-05 07:20] VITALS: BP 138/52; PULSE 90; TEMP 97.9
[2020-05-05 07:34] LABS: MEAN CELL VOLUME 94 fl (80.0-100.0); MEAN CORPUSCULAR HGB CONC 29 g/dl (33.0-37.0); MEAN PLATELET VOLUME 9.5 fl (7.4-10.4); PLATELET COUNT 296 K/mm3 (130-400); RED BLOOD COUNT 2.87 M/mm3 (4.10-5.30)
[2020-05-05 07:37] LABS: INR 1.7 (0.8-3.0); PROTHROMBIN TIME 18.8 SECONDS (9.7-12.8)
[2020-05-05 07:42] LABS: HEMATOCRIT 26.9 % (37.0-47.0); HEMOGLOBIN 7.9 g/dl (12.5-16.0); MEAN CORPUSCULAR HEMOGLOBIN 28 pg (27.0-31.0)
[2020-05-05 07:58] LABS: ALBUMIN 3.2 gm/dL (3.5-5.0); CREATININE, serum 6.44 (0.52-1.25); PHOSPHOROUS 6.1 mg/dL (2.5-4.5); POTASSIUM 3.9 mmol/L (3.4-5.0)
--- NOTE | 2020-05-05 08:01 | NUR ---
Lying in bed with eyes open. Alert and oriented x4. Denies pain. Is aware that she is NPO today for procedure. Hines to dependent drainage with clear yellow urine. Pannus red, apply Densenx as prescribed. Discuss repositioning in bed to alleviate pressure on backside. Patient denies needs.
[2020-05-05 08:31] LABS: ANISOCYTOSIS 1+; BAND 17 % (0-10); EOSINOPHIL 1 % (0-4); HYPOCHROMIA 3+; LYMPHOCYTE 7 % (20.0-51.0); METAMYELOCYTE 3 % (0-0); MYELOCYTE 3 % (0-0); NEUTROPHILS 61 % (42.0-75.2); PLATELET ESTIMATE NORMAL (NORMAL)
--- NOTE | 2020-05-05 08:38 | NUR ---
Patient is having pain in her legs and would like pain medication. Administer pain medication as prescribed. Patient denies additional needs.
--- NOTE | 2020-05-05 09:49 | NUR ---
Review consent with the patient. Patient verbalizes understanding and signs consent. WIll place on chart.
[2020-05-05 11:20] VITALS: BP 112/69; PULSE 105; TEMP 97.4
--- NOTE | 2020-05-05 11:47 | NUR ---
Patient to procedure via bed at this time.
--- NOTE | 2020-05-05 15:02 | NUR ---
Patient up from surgery and to dialysis room via bed. Patient is alert and oriented x4. Denies pain. Dressing to AV fistula on left upper arm CDI. Patient now has a dialysis catheter to her right upper chest and the dressing is CDI. There was a small incision that was made to right side of neck, bruising at site, no redness/swelling/discharge, glue intact. Patient denies needs or concerns at this time.
[2020-05-05 15:27] VITALS: BP 124/72; PULSE 92; TEMP 97.8
--- NOTE | 2020-05-05 15:27 | NUR ---
Patient still in dialysis. Doing well at this time. Denies pain or further needs.
--- NOTE | 2020-05-05 16:44 | NUR ---
Excavating Machine Operator faxed updates to [facility], [facility],and [facility].
--- NOTE | 2020-05-05 17:34 | NUR ---
Patient back to room, dialysis completed. Patient feeling tired. Having some pain in her leg and requests pain medication. Administer pain medication as prescribed. Patient sitting up in bed ready for supper. Denies additional needs.
--- NOTE | 2020-05-05 18:16 | NUR ---
Lying in bed watching TV, talking on phone, and working on eating her dinner. Pain is getting better. Denies additional needs at this time.
--- NOTE | 2020-05-05 20:00 | NUR ---
Report received, assumed care for security shift supervisor. Assessment complete. VS stable. A&Ox3. Denies pain/nausea/shortness of breath at rest. States she does get short of air with activity. Dressing to new dialysis cath to right chest CDI. Fistula to left forearm also CDI. Noted to have edema to both upper and lower extremities-+2. Dressing to right lower extremity -jacob/gauze-CDI. No drainage noted to chux underneath. Hines cath with clear yellow urine. Plan of care discussed for this shift to include HS meds/bedside glucose/fluid restriction/calling for questions/concerns. Verbalizes understanding/denies questions/concerns. States she will call when she is ready for her HS meds. Call light in reach. WIll monitor.
[2020-05-05 20:05] VITALS: BP 103/61; PULSE 85; TEMP 97.6
--- NOTE | 2020-05-05 22:15 | NUR ---
Called with c/o pain to right lower extremity-rating pain 6/10 on pain scale-described as constant ache with burning/throbbing. Also states her left forearm is sore. Hydrocodone given per dr bro. Will monitor.
[2020-05-06 00:17] VITALS: BP 110/64; PULSE 74; TEMP 98.4
--- NOTE | 2020-05-06 01:00 | NUR ---
Resting eyes closed. No s/s of pain noted.
[2020-05-06 03:41] VITALS: BP 112/69; PULSE 71; TEMP 97.9
--- NOTE | 2020-05-06 05:06 | NUR ---
Called with c/o pain to right lower extremity-rating pain 7/10 on pain scale-described as constant ache with intermittent throbbing. Orange given per dr bro. Call light in reach. Will monitor.
[2020-05-06 07:43] VITALS: BP 134/92; PULSE 107; TEMP 98.3
[2020-05-06 07:47] LABS: MEAN CELL VOLUME 93 fl (80.0-100.0); MEAN CORPUSCULAR HGB CONC 30 g/dl (33.0-37.0); MEAN PLATELET VOLUME 9.6 fl (7.4-10.4); PLATELET COUNT 285 K/mm3 (130-400); RED BLOOD COUNT 2.71 M/mm3 (4.10-5.30); REDCELL DISTRIBUTION WIDTH-CV 15.1 % (11.5-14.5)
[2020-05-06 07:49] LABS: HEMATOCRIT 25.3 % (37.0-47.0); HEMOGLOBIN 7.5 g/dl (12.5-16.0); MEAN CORPUSCULAR HEMOGLOBIN 28 pg (27.0-31.0)
[2020-05-06 07:52] LABS: INR 1.8 (0.8-3.0); PROTHROMBIN TIME 20.7 SECONDS (9.7-12.8)
[2020-05-06 07:56] LABS: CALCIUM 8.8 mg/dL (8.4-10.2); CREATININE, serum 5.47 (0.52-1.25); POTASSIUM 4.2 mmol/L (3.4-5.0)
--- NOTE | 2020-05-06 10:45 | NUR ---
PT UP TO RECLINER WITH THERAPY, THEN BACK TO BED FOR DIALYSIS IN DIALYSIS AT THIS TIME. DRESSING TO RIGH LEG CDI WITH JEFF WRAP INPLACE. JAIN CATHETER TO DD.
[2020-05-06 12:13] VITALS: BP 118/56; PULSE 90; TEMP 98.8
[2020-05-06 15:30] VITALS: BP 98/54; PULSE 96; TEMP 97.6
[2020-05-06 19:40] LABS: HEPATITIS B SURFACE ANTIBODY <2.0 (()); HEPATITIS B SURFACE ANTIGEN Negative (Negative); HEPATITIS C VIRUS ANTIBODY Negative (Negative)
--- NOTE | 2020-05-06 20:45 | NUR ---
Pt. laying in bed at this time. Pt. is A&OX3, assessment complete. INT to rt. forearm patent. HD cath to rt. chest patent. AV fistula to lt. arm dressing cdi. Pt. requests a pain pill with evening meds, gave per orders. Pt. denies further needs, call light within reach.
[2020-05-06 21:04] VITALS: BP 100/59; PULSE 64; TEMP 98.3
[2020-05-07 00:15] VITALS: BP 103/54; PULSE 69; TEMP 97.4
[2020-05-07 04:00] VITALS: BP 113/77; PULSE 98; TEMP 98.4
[2020-05-07 07:28] VITALS: BP 98/71; PULSE 92; TEMP 97.7
[2020-05-07 07:46] LABS: MEAN CELL VOLUME 96 fl (80.0-100.0); MEAN CORPUSCULAR HGB CONC 30 g/dl (33.0-37.0); MEAN PLATELET VOLUME 9.8 fl (7.4-10.4); PLATELET COUNT 252 K/mm3 (130-400); RED BLOOD COUNT 2.73 M/mm3 (4.10-5.30); REDCELL DISTRIBUTION WIDTH-CV 15.6 % (11.5-14.5)
[2020-05-07 07:48] LABS: INR 1.6 (0.8-3.0); PROTHROMBIN TIME 18.5 SECONDS (9.7-12.8)
[2020-05-07 07:51] LABS: HEMOGLOBIN 7.8 g/dl (12.5-16.0); MEAN CORPUSCULAR HEMOGLOBIN 29 pg (27.0-31.0)
[2020-05-07 07:52] LABS: HEMATOCRIT 26.3 % (37.0-47.0)
[2020-05-07 07:54] LABS: CREATININE, serum 4.98 (0.52-1.25)
--- NOTE | 2020-05-07 08:53 | NUR ---
PT RESTING IN BED ATE BREAKFAST. PLAN ON DIALYSIS LATER THIS PM.
--- NOTE | 2020-05-07 10:25 | NUR ---
DRESSING CHANGE COMPLETE WOUND CULTURES OBTAINED AND SENT TO LAB.
[2020-05-07 11:21] VITALS: BP 118/57; PULSE 86; TEMP 98.1
[2020-05-07 15:57] VITALS: BP 141/76; PULSE 101; TEMP 98.7
--- NOTE | 2020-05-07 16:13 | NUR ---
Patient tolerated 3rd HD tx well, removed 2.4 L of fluid today. Next tx planned for Tuesday05/09/20.
--- NOTE | 2020-05-07 17:33 | NUR ---
Splitting Machine Tender spoke with Brady at [facility] who advised they can accept at discharge. [facility] is unable to accept. LUCAS contacted patient's , Jeffry to provide update. Jeffry would like a referral sent to [facility] in [place] as his daughter works there. LUCAS faxed referral.
--- NOTE | 2020-05-07 20:20 | NUR ---
Pt. sitting up in chair at this time. Pt. is A&OX3, assessment complete. INT to rt. ac patent. AV fistula to lt. upper arm, kevin intact. Pt. reports pain at a 7 on pain scale to rt. leg. Dressing to rt. leg wound CDI. Pt. assisted to bed with 2 assist. Hines catheter removed at this time. Pt. tolerated well. Pt. denies further needs, call light within reach.
[2020-05-07 21:02] VITALS: BP 119/67; PULSE 79; TEMP 98.7
[2020-05-08] VITALS (12 sets, daily range): BP systolic 93–147; BP diastolic 43–68; PULSE 68–98; TEMP 97.4–98.8
[2020-05-08 06:38] LABS: MEAN CELL VOLUME 98 fl (80.0-100.0); MEAN CORPUSCULAR HGB CONC 29 g/dl (33.0-37.0); MEAN PLATELET VOLUME 9.5 fl (7.4-10.4); PLATELET COUNT 216 K/mm3 (130-400); RED BLOOD COUNT 2.84 M/mm3 (4.10-5.30); REDCELL DISTRIBUTION WIDTH-CV 15.8 % (11.5-14.5)
[2020-05-08 06:41] LABS: HEMATOCRIT 27.9 % (37.0-47.0); MEAN CORPUSCULAR HEMOGLOBIN 28 pg (27.0-31.0)
[2020-05-08 06:46] LABS: INR 1.7 (0.8-3.0); PROTHROMBIN TIME 19.6 SECONDS (9.7-12.8)
[2020-05-08 06:48] LABS: CALCIUM 9.3 mg/dL (8.4-10.2); CREATININE, serum 3.77 (0.52-1.25); POTASSIUM 4.2 mmol/L (3.4-5.0)
--- NOTE | 2020-05-08 07:55 | NUR ---
PATIENT MORNING SHIFT ASSESSMENT COMPLETE. AM MEDICATIONS HELD AT THIS TIME DUE TO NPO STATUS AND NITISH THIS MORNING. PRE-OP FLUID TO GRAVITY FLOW TUBING AND INFUSING TO RIGHT AC IV. CONSENT FORM SIGNED AND PLACED ON PATIENTS CHART. CALL LIGHT WITHIN REACH. PATIENT DENIES ANY NEEDS AT THIS TIME.
[2020-05-08 08:03] LABS: BAND 14 % (0-10); EOSINOPHIL 3 % (0-4); LYMPHOCYTE 10 % (20.0-51.0); METAMYELOCYTE 5 % (0-0); NEUTROPHILS 64 % (42.0-75.2); NUCLEATED RED BLOOD CELL 1 (0-6)
[2020-05-08 08:04] LABS: OVALOCYTES 1+; PLATELET ESTIMATE NORMAL (NORMAL)
--- NOTE | 2020-05-08 08:12 | NUR ---
PATIENT TAKEN FOR NITISH. WILL WAIT FOR PATIENT RETURN TO ROOM 347.
--- NOTE | 2020-05-08 09:50 | NUR ---
PATIENT ARRIVED BACK TO ROOM 347 VIA BED FROM NITISH AND CARDIOVERSION. TELE IN PLACE. PATIENT IN NORMAL SINUS RHYTHM. VSS. PATIENT TOLERATING CLEAR LIQUIDS. WILL CONTINUE TO MONITOR.
--- NOTE | 2020-05-08 10:32 | NUR ---
SHAVON WITH RT CALLED FOR EKG.
--- NOTE | 2020-05-08 11:40 | NUR ---
PATIENT ASSISTED UP TO THE CHAIR BY PHYSICAL THERAPY. PATIENT GIVEN PRN PAIN PILL AT THIS TIME. POST-OP VSS AND COMPLETE.
[2020-05-08 12:18] LABS: PARTIAL THROMBOPLASTIN TIME 41.4 SECONDS (26.0-37.0)
--- NOTE | 2020-05-08 12:26 | NUR ---
IV HEPARIN STARTED PER PROTOCOL AND INFUSING TO RIGHT AC IV. HEPXA: 0.53.
--- NOTE | 2020-05-08 12:37 | NUR ---
Development Director followed up with Lashonda at [facility] who advised they are reviewing referral and may be able to accept patient. LUCAS then followed up with patient who advised that [facility] would be her first preference. LUCAS contacted Brady at [facility] and faxed updates. Brady advised they can accept patient for discharge tomorrow. LUCAS updated patient's , Jeffry who advised he has been in contact with [facility]. LUCAS also left Belinda at [facility] a message with the update in patient preference.
--- NOTE | 2020-05-08 16:24 | NUR ---
ZACH SANTOS CALLED AND NOTIFIED THAT THE PATIENTS RLE DRESSING IS REMOVED AND OPEN TO AIR FOR THE PHYSICIAN TO SEE.
--- NOTE | 2020-05-08 17:30 | NUR ---
PATIENT RLE RE-DRESSED WITH VASELINE GAUZE, NON-ADHERANT PADS, ABD, KERLIX AND JEFF WRAP. PATIENT TOLERATED WELL. PATIENT REPORTING PAIN A 2/10 AT THIS TIME. WILL REPORT OFF TO ONCOMING NURSE.
[2020-05-09 00:13] VITALS: BP 118/70; PULSE 59; TEMP 98.1
[2020-05-09 04:27] LABS: CALCIUM 9.7 mg/dL (8.4-10.2); CREATININE, serum 5.08 (0.52-1.25); POTASSIUM 4.1 mmol/L (3.4-5.0)
[2020-05-09 04:40] VITALS: BP 115/53; PULSE 72; TEMP 98.9
--- NOTE | 2020-05-09 04:55 | NUR ---
PATIENT'S HEP XA DRAWN LATE DUE TO NOT BEING ABLE TO GET BLOOD DRAWN. LAB CAME BACK CRITICAL AT 0.95. FOLLOWING PROTOCOL, INFUSION WILL STOPPED FOR ONE HOUR AND THEN WILL BE DECREASED BY 250 UNITS/ HOUR. WILL RECHECK VALUE IN 6 HOURS.
--- NOTE | 2020-05-09 05:48 | NUR ---
Heparin drip restarted at 19.5 ml/hour.
[2020-05-09 07:57] VITALS: BP 121/56; PULSE 78; TEMP 98.8
[2020-05-09 08:40] LABS: INR 1.9 (0.8-3.0); PROTHROMBIN TIME 21.5 SECONDS (9.7-12.8)
[2020-05-09] MEDS ORDERED: DOXYCYCLINE 10100 MG PO (08:41)
[2020-05-09] MEDS ORDERED: PACERONE200 MG PO (08:44)
[2020-05-09] MEDS ORDERED: TOPROL XL 25MG25 MG PO (08:45)
[2020-05-09] MEDS ORDERED: PHOSLO667 MG PO (08:47)
[2020-05-09] MEDS ORDERED: TYLENOL 325MG325 MG PO (08:47)
[2020-05-09] MEDS ORDERED: SODIUM BICARBO650 MG PO (08:48)
[2020-05-09] MEDS ORDERED: NORCO 325 MG-51 TAB PO (08:50)
--- NOTE | 2020-05-09 11:13 | NUR ---
PT UP WITH ASSIST TO DIALYSIS CHAIR. IN DIALYSIS THIS AM. PLAN ON DISCHARGE LATER THIS PM.
--- NOTE | 2020-05-09 11:56 | NUR ---
DISCONTINUED IV AND HEPARIN PER ORDERS. PT TOLERATED WELL. [facility] @[facility]00. PT HAS DIALYSIS CATHETER INPLACE AND NEW FISTULA TO LEFT UPPER ARM.
--- NOTE | 2020-05-09 12:28 | NUR ---
Patient is ready to be discharged today. LUCAS contacted Brady at [facility] and faxed discharge orders along with most recent COVID test. Transport time was set for 1300. LUCAS provided transport time to patient, patient's , Jeffry and patient's RN, [facility]. LUCAS notified Belinda at [facility] that patient will discharge to a local facility today. No additional needs at this time.
[2020-05-09 12:58] VITALS: BP 168/80; PULSE 81; TEMP 98.6
--- NOTE | 2020-05-09 13:12 | NUR ---
REPORT CALLED AND NO ANSWER NO ONE TO TAKE REPORT. LEFT MESSAGE WITH NAME AND NUMBER FOR THEM TO CONTACT NURSING FOR REPORT.
--- NOTE | 2020-05-09 13:49 | NUR ---
REPORT GIVEN TO [facility] STAFF.
== END 2020-05-09 13:50 | DRG 252 ==
LOC: COL.ER 22:07 → SURG 04-30 01:45 → MEDICAL 05-08 15:19 → SURG 05-09 13:50
PROVIDERS: Family Medicine; Hospitalist; Internal Medicine Nephrology; Physician Assistant; Surgery; ADMIT Internal Medicine
PROC: 02HV33Z Insertion of Infusion Device into Superior Vena Cava, Percutaneous Approach (ICD-10-PCS; 2020-05-05)
PROC: 5A1D70Z Performance of Urinary Filtration, Intermittent, Less than 6 Hours Per Day (ICD-10-PCS; 2020-05-05)
PROC: 05SD0ZZ Reposition Right Cephalic Vein, Open Approach (ICD-10-PCS; principal; 2020-05-05 12:30)
PROC: 0JH63XZ Insertion of Tunneled Vascular Access Device into Chest Subcutaneous Tissue and Fascia, Percutaneous Approach (ICD-10-PCS; 2020-05-05 12:30)
PROC: 5A2204Z Restoration of Cardiac Rhythm, Single (ICD-10-PCS; 2020-05-08)
DX: I13.2 Hypertensive heart and chronic kidney disease with heart failure and with stage 5 chronic kidney disease, or end stage renal disease (principal); I50.33 Acute on chronic diastolic (congestive) heart failure; I21.A1 Myocardial infarction type 2; N18.6 End stage renal disease; Z68.43 Body mass index [BMI] 50.0-59.9, adult; L03.115 Cellulitis of right lower limb; E87.2 Acidosis; I48.91 Unspecified atrial fibrillation; D63.1 Anemia in chronic kidney disease; E66.01 Morbid (severe) obesity due to excess calories; E11.22 Type 2 diabetes mellitus with diabetic chronic kidney disease; F32.9 Major depressive disorder, single episode, unspecified; E78.5 Hyperlipidemia, unspecified; E03.9 Hypothyroidism, unspecified; G47.33 Obstructive sleep apnea (adult) (pediatric); R79.1 Abnormal coagulation profile; B37.9 Candidiasis, unspecified; M17.0 Bilateral primary osteoarthritis of knee; G47.00 Insomnia, unspecified; D50.9 Iron deficiency anemia, unspecified; Z79.01 Long term (current) use of anticoagulants; Z88.0 Allergy status to penicillin; Z88.1 Allergy status to other antibiotic agents; Z88.6 Allergy status to analgesic agent
CPT/HCPCS: 99231-AI; 99232-AI; 99233-AI; 99239; C1750; J0330; J0690; J0696; J1644; J1650; J1940; J2370; J2543; J2704; J2916; J3010; J3370; J7030; J7040; J7050; Q5105; Q5106

== ENCOUNTER → 2020-05-24 | Outpatient (REF) | payer MEDICARE ==
[~2020-05-24] MED LIST changes: +DOXYCYCLINE 10100 MG PO; +MYCOSTATIN100000 U/1 TP; +NORCO 325 MG-51 TAB PO; +PACERONE200 MG PO; +PHOSLO667 MG PO; +SODIUM BICARBO650 MG PO; +TOPROL XL 25MG25 MG PO; +TYLENOL 325MG325 MG PO
[2020-05-24 14:08] LABS: INR 2.6 (0.8-3.0); PROTHROMBIN TIME 29.4 SECONDS (9.7-12.8)
== END ==
LOC: ZLAB.STJ 13:57
PROVIDERS: Internal Medicine
DX: I48.21 Permanent atrial fibrillation (principal)

== ENCOUNTER 2020-06-07 14:40 | Inpatient (IN) | payer MEDICARE, OTHER ==
[~2020-06-07] VITALS: Ht 165.1 cm; Wt 166.0 kg
[2020-06-07 15:14] LABS: BASO % 0.6 % (0.0-2.0); EOS # 0.4 (0.0-0.7); EOS % 8.3 % (0-4.0); GRAN # 3.4 (1.4-6.5); GRAN % 68.1 % (42.2-75.2); LYMPH # 0.7 (1.2-3.4); LYMPH % 12.9 % (20.0-51.0); MEAN CELL VOLUME 101 fl (80.0-100.0); MEAN CORPUSCULAR HGB CONC 29 g/dl (33.0-37.0); MEAN PLATELET VOLUME 10.1 fl (7.4-10.4); MONO # 0.5 (0.1-0.6); MONO % 9.7 % (1.7-9.3); PLATELET COUNT 162 K/mm3 (130-400); RED BLOOD COUNT 3.25 M/mm3 (4.10-5.30); REDCELL DISTRIBUTION WIDTH-CV 16.5 % (11.5-14.5)
[2020-06-07 15:22] LABS: HEMATOCRIT 32.7 % (37.0-47.0); HEMOGLOBIN 9.5 g/dl (12.5-16.0); MEAN CORPUSCULAR HEMOGLOBIN 29 pg (27.0-31.0)
[2020-06-07 15:23] LABS: ALBUMIN 3.8 gm/dL (3.5-5.0); BILIRUBIN,TOTAL 0.5 mg/dL (0.0-1.0); CREATININE, serum 6.57 (0.52-1.25); INR 1.9 (0.8-3.0); MAGNESIUM 2.2 mg/dL (1.6-2.3); POTASSIUM 4.7 mmol/L (3.4-5.0); PROTHROMBIN TIME 21.5 SECONDS (9.7-12.8); TOTAL PROTEIN 7.1 gm/dL (6.4-8.2)
[2020-06-07 15:27] LABS: MUCOUS Present /lpf; PH 6 (5-8); URINE APPEARANCE Turbid; URINE BACTERIA None Seen /hpf; URINE BILIRUBIN Negative (NEGATIVE); URINE BLOOD 2+ (NEGATIVE); URINE COLOR Amber; URINE GLUCOSE Negative (NEGATIVE); URINE KETONE Negative (NEGATIVE); URINE LEUKOCYTE ESTERASE 2+ (NEGATIVE); URINE NITRATE Negative (NEGATIVE); URINE PROTEIN(semi-quant) 2+ (NEGATIVE); URINE RBC >50 /hpf; URINE UROBILINOGEN Negative (NEGATIVE)
[2020-06-07 18:19] VITALS: BP 118/55; PULSE 60; TEMP 98.5
[2020-06-07] MEDS ORDERED: TOPROL XL 25MG25 MG PO (18:55)
[2020-06-07] MEDS ORDERED: TYLENOL 325MG325 MG PO (18:56)
[2020-06-07] MEDS ORDERED: PHOSLO667 MG PO (18:56)
[2020-06-07] MEDS ORDERED: SODIUM BICARBO650 MG PO (18:57)
[2020-06-07 20:02] VITALS: BP 92/44; PULSE 55; TEMP 97.4
[2020-06-07 23:10] VITALS: BP 97/51; PULSE 59; TEMP 97.7
[2020-06-08 04:29] VITALS: BP 96/53; PULSE 59; TEMP 97
[2020-06-08 06:58] LABS: BASO % 0.6 % (0.0-2.0); EOS # 0.4 (0.0-0.7); EOS % 9.1 % (0-4.0); GRAN % 65.3 % (42.2-75.2); LYMPH # 0.6 (1.2-3.4); LYMPH % 13.6 % (20.0-51.0); MEAN CELL VOLUME 102 fl (80.0-100.0); MEAN CORPUSCULAR HGB CONC 29 g/dl (33.0-37.0); MEAN PLATELET VOLUME 10.1 fl (7.4-10.4); MONO # 0.5 (0.1-0.6); MONO % 10.8 % (1.7-9.3); PLATELET COUNT 160 K/mm3 (130-400); RED BLOOD COUNT 3.02 M/mm3 (4.10-5.30); REDCELL DISTRIBUTION WIDTH-CV 16.4 % (11.5-14.5)
[2020-06-08 07:06] LABS: HEMATOCRIT 30.7 % (37.0-47.0); HEMOGLOBIN 8.8 g/dl (12.5-16.0); MEAN CORPUSCULAR HEMOGLOBIN 29 pg (27.0-31.0)
[2020-06-08 07:13] LABS: ALBUMIN 3.4 gm/dL (3.5-5.0); CALCIUM 8.7 mg/dL (8.4-10.2); CREATININE, serum 7.11 (0.52-1.25); PHOSPHOROUS 7.7 mg/dL (2.5-4.5)
[2020-06-08 07:27] VITALS: BP 82/36; PULSE 62; TEMP 97.7
--- NOTE | 2020-06-08 07:40 | NUR ---
PT LAYING IN BED AT THIS TIME. PT'S BP IS VERY LOW. CALLED DR. SAMPSON, NO ANSWER WILL ATTEMPT AGAIN. PT IS SLIGHTLY DROWSY, BUT STATES SHE DOES NOT FEEL POORLY. PT DID ORDER BREAKFAST, AND IT SHOULD BE ARRIVING SOON.
[2020-06-08 09:29] VITALS: BP 99/39
[2020-06-08 10:58] LABS: COLLECTION METHOD CATHETER
[2020-06-08 11:13] VITALS: BP 94/44; PULSE 60; TEMP 97.7
--- NOTE | 2020-06-08 11:13 | NUR ---
SW met with patient to conduct intake assessment. Patient lives at home in [place] with her Jeffry (P# [phone]). Patient does not have a DPOA-HC and was not interested in paperwork at this time. Patient has home health services through [facility]. Patient uses a wheelchair for mobility and uses CPAP that she acquired through [facility]. Patient's PCP is Dr. Diaz and he uses [facility] for pharmcy needs. Patient reported no problems obtaining medications. Patient plans to return home with her Darius and resume Home Health Services at this time.
[2020-06-08 15:58] VITALS: BP 105/45; PULSE 62; TEMP 97.4
[2020-06-08 19:24] VITALS: BP 91/38; PULSE 64; TEMP 97.1
--- NOTE | 2020-06-08 19:45 | NUR ---
PT HAD UNEVENTFUL DAY. PT DID STAND WITH PT, HOWEVER STATED THAT SHE COULD NOT WALK, THEREFORE SHE RETURNED TO BED, AND SLEPT FOR MOST OF THE DAY. THE PATIENT DID EAT ALL OF HER MEALS. HAD MINIMAL OUTPUT, AND ONE BM. NO OTHER CONCERS, REPORT GIVEN TO LISBETH FLETCHER.
[2020-06-09] VITALS (7 sets, daily range): BP systolic 87–112; BP diastolic 36–47; PULSE 68–76; TEMP 97.6–98.8
--- NOTE | 2020-06-09 07:00 | NUR ---
Report received from Shelli Horton. Pt in bed resting with 5 pillows behind head and around arms. Will continue to monitor.
--- NOTE | 2020-06-09 08:00 | NUR ---
Assessment charted. Pt c/o pain to R shoulder at 7/10, PRN pain meds provided per request and repositioned arm on pillows. Pt states she is unable to move head of bed up or down by herself. Purewick in place but no urine draining at thsi time. Pannus,groin and under breasts are moist, desenex powder applied to reduce moisture. Inner thighs are chafed and scabbed over. BLE have some redness and tightness of skin but RLE is more red and tender. HD catheter to [facility] had now dressing on it, cleaned with chlorahexadine and replaced with small tegaderm. MARY AV fistula thrill and bruit present. INT to R A/C. Pt brought to dialysis per Ming via bed, aware of low BPS ON and this am. called for update, provided and notified pt of call. Will continue to monitor.
[2020-06-09 09:13] LABS: BASO % 0.4 % (0.0-2.0); EOS # 0.5 (0.0-0.7); EOS % 9.4 % (0-4.0); GRAN # 3.7 (1.4-6.5); GRAN % 72.4 % (42.2-75.2); LYMPH # 0.5 (1.2-3.4); LYMPH % 8.9 % (20.0-51.0); MEAN CELL VOLUME 98 fl (80.0-100.0); MEAN CORPUSCULAR HGB CONC 30 g/dl (33.0-37.0); MEAN PLATELET VOLUME 9.9 fl (7.4-10.4); MONO # 0.4 (0.1-0.6); MONO % 7.9 % (1.7-9.3); PLATELET COUNT 168 K/mm3 (130-400); RED BLOOD COUNT 3.01 M/mm3 (4.10-5.30); REDCELL DISTRIBUTION WIDTH-CV 16.2 % (11.5-14.5)
[2020-06-09 09:17] LABS: HEMOGLOBIN 8.7 g/dl (12.5-16.0); MEAN CORPUSCULAR HEMOGLOBIN 29 pg (27.0-31.0)
[2020-06-09 09:18] LABS: HEMATOCRIT 29.5 % (37.0-47.0)
[2020-06-09 09:21] LABS: INR 2.7 (0.8-3.0); PROTHROMBIN TIME 30.1 SECONDS (9.7-12.8)
[2020-06-09 09:27] LABS: ALBUMIN 3.3 gm/dL (3.5-5.0); CALCIUM 8.4 mg/dL (8.4-10.2); CREATININE, serum 8.99 (0.52-1.25); PHOSPHOROUS 8.4 mg/dL (2.5-4.5)
--- NOTE | 2020-06-09 13:05 | NUR ---
Patient tolerated HD tx today, removed 1,300 mL of fluid. Next HD tx planned for Tuesday06/11/2020 @ 0800.
--- NOTE | 2020-06-09 15:18 | NUR ---
Footwear Production Machine Operator collaborated with Carolynn Angel, Photo Technician who advised patient was previously at [facility] and discharged home. Per Heather at [facility] patient would not do a Medicaid Application and was often not willing to participate in therapy or attend dialysis. LUCAS met with patient to address these concerns. Patient states she is willing to do a Medicaid application and will try to work with therapy, but often after dialysis she is too tired. LUCAS also contacted patient's , Jeffry who was agreeable to a Medicaid application. LUCAS consulted Cathy, Financial Counselor. LUCAS then updated Heather at [facility] and faxed clinical updates.
--- NOTE | 2020-06-09 17:58 | NUR ---
Pt resting in bed most of day after dialysis. Tried to work with PT but unable to stand at bedside today d/t tiredness from dialysis. Pt turned to prevent breakdown on backside, pt difficult to turn but agreeable to plan. 1LNC. Puriwick in place. Denies needs, will give bedside shift report to nigthshift nurse who will resume care.
[2020-06-10 03:18] VITALS: BP 105/51; PULSE 77; TEMP 97.9
[2020-06-10 07:07] LABS: MEAN CELL VOLUME 100 fl (80.0-100.0); MEAN CORPUSCULAR HGB CONC 30 g/dl (33.0-37.0); MEAN PLATELET VOLUME 9.9 fl (7.4-10.4); PLATELET COUNT 166 K/mm3 (130-400); RED BLOOD COUNT 3.11 M/mm3 (4.10-5.30); REDCELL DISTRIBUTION WIDTH-CV 16.2 % (11.5-14.5)
[2020-06-10 07:10] LABS: HEMATOCRIT 31.2 % (37.0-47.0); HEMOGLOBIN 9.2 g/dl (12.5-16.0); MEAN CORPUSCULAR HEMOGLOBIN 30 pg (27.0-31.0)
[2020-06-10 07:18] LABS: ALBUMIN 3.5 gm/dL (3.5-5.0); CALCIUM 9.1 mg/dL (8.4-10.2); CREATININE, serum 6.18 (0.52-1.25); PHOSPHOROUS 6.7 mg/dL (2.5-4.5); POTASSIUM 4.8 mmol/L (3.4-5.0)
[2020-06-10 07:19] LABS: INR 2.6 (0.8-3.0); PROTHROMBIN TIME 29.3 SECONDS (9.7-12.8)
[2020-06-10 07:46] VITALS: BP 116/41; PULSE 75; TEMP 98.3
[2020-06-10 08:02] LABS: BAND 8 % (0-10); EOSINOPHIL 3 % (0-4); LYMPHOCYTE 5 % (20.0-51.0); METAMYELOCYTE 1 % (0-0); NEUTROPHILS 75 % (42.0-75.2); PLATELET ESTIMATE NORMAL (NORMAL)
--- NOTE | 2020-06-10 08:20 | NUR ---
PT AOX4, APPEARS AGDAAGUX, MOVES IN THE BED, PT OBESE, ABD SOFT, EATING BREAKFAST, PILLS GIVEN, ICE WATER BROUGHT IN FOR PT ALONG WITH COFFEE, PT REPORTS PAIN IN R SHOULDER, WOULD LIKE AN XRAY TO CHECK FOR FRACTURES. NO OTHER NEEDS
--- NOTE | 2020-06-10 09:29 | NUR ---
Initial visit; Patient thanked Arcade Game Technician for looking in on her, offering comfort and God's blessings. Patient thanked Arcade Game Technician for keeping her in her prayers.
[2020-06-10 11:35] VITALS: BP 93/37; PULSE 70; PULSE 709; TEMP 98
[2020-06-10 16:17] VITALS: BP 117/42; PULSE 73; TEMP 97.8
--- NOTE | 2020-06-10 16:46 | NUR ---
Channel Opener faxed clinical updates to Lizz at [facility]. LUCAS followed up with Lizz who advised they would likely accept if patient agrees to Medicaid Application. LUCAS consulted Cathy who will complete application.
--- NOTE | 2020-06-10 17:40 | NUR ---
PT PLEASANT, AOX4, DRINKING FLUIDS WELL, C/O R SHOULDER PAIN, NORCO GIVEN, PT REPOSITIONED FREQUENTLY, PUREWICC DRAINING, NO OTHER NEEDS
[2020-06-10 19:41] VITALS: BP 100/35; PULSE 70; TEMP 97.7
--- NOTE | 2020-06-10 21:24 | NUR ---
PT ALERT AND OX4. PAIN TO RIGHT SHOULDER ELEVATED ON PILLOW AND RECENT PAIN MED. FEELING BETTER. DENIES SOA, CHEST PAIN OR DIZZY. BM YESTURDAY. PILLOWS UNDER ARMS AND LEGS FOR OFFLOADING .PUREWICK IN PLACE. RIGHT CHEST DIAYLIS CATH INTACT AND COVERED. NEEDS MET LIGHTS DOWN FOR THE NIGHT.
[2020-06-11 20:00] VITALS: BP 94/37; PULSE 72; TEMP 98.5
--- NOTE | 2020-06-11 22:02 | NUR ---
PT LYING DOWN IN BED. RATES PAIN 7/10 TO UPPER RIGHT SHOULDER. POSITIONED ON PILLOW. REPOSITION IN BED. ASSESSMENT COMPLETE. POC DISCUSSED WITH PT. PM MEDS ALONG W PRN NORCO TO TREAT PAIN. PT STATES SHE HAD A TIRING DAY WITH DIALYSIS AND WORKING WITH PT. NEEDS MET.
[2020-06-12 00:16] VITALS: BP 120/39; PULSE 77; TEMP 98.2
[2020-06-12 04:20] VITALS: BP 117/37; PULSE 71; TEMP 98
--- NOTE | 2020-06-12 04:54 | NUR ---
PT HAD A UNEVENTFUL NIGHT. RESTED THROUGH OUT THE NIGHT. NEEDS MET.
[2020-06-12 07:07] LABS: MEAN CELL VOLUME 101 fl (80.0-100.0); MEAN CORPUSCULAR HGB CONC 29 g/dl (33.0-37.0); MEAN PLATELET VOLUME 9.7 fl (7.4-10.4); PLATELET COUNT 189 K/mm3 (130-400); RED BLOOD COUNT 3.03 M/mm3 (4.10-5.30); REDCELL DISTRIBUTION WIDTH-CV 16.3 % (11.5-14.5)
[2020-06-12 07:23] LABS: HEMATOCRIT 30.5 % (37.0-47.0); HEMOGLOBIN 8.9 g/dl (12.5-16.0); MEAN CORPUSCULAR HEMOGLOBIN 29 pg (27.0-31.0)
[2020-06-12 07:24] LABS: ALBUMIN 3.1 gm/dL (3.5-5.0); CALCIUM 9.3 mg/dL (8.4-10.2); CREATININE, serum 5.56 (0.52-1.25); PHOSPHOROUS 4.4 mg/dL (2.5-4.5); POTASSIUM 4.5 mmol/L (3.4-5.0)
[2020-06-12 07:47] LABS: INR 2.4 (0.8-3.0); PROTHROMBIN TIME 26.8 SECONDS (9.7-12.8)
--- NOTE | 2020-06-12 08:00 | NUR ---
PT PLEASANT, AOX4, REQUESTED A PAIN PILL, ALL OTHER MEDICATIONS GIVEN, COVID SWAB OBTAINED, FRESH WATER BROUGHT IN, VITALS REVIEWED, NO OTHER NEEDS
[2020-06-12 08:14] LABS: BAND 5 % (0-10); EOSINOPHIL 9 % (0-4); LYMPHOCYTE 5 % (20.0-51.0); NEUTROPHILS 73 % (42.0-75.2)
[2020-06-12 08:15] VITALS: BP 117/49; PULSE 71; TEMP 97.4
[2020-06-12 08:17] LABS: ANISOCYTOSIS 1+; HYPOCHROMIA 3+; PLATELET ESTIMATE NORMAL (NORMAL)
--- NOTE | 2020-06-12 08:36 | NUR ---
Cathy, Financial Counselor contacted patient to complete Medicaid Application. LUCAS obtained patient signatures on releases and returned them to Cathy.
[2020-06-12] MEDS ORDERED: ATARAX 25MG25 MG/TAB PO (10:40)
[2020-06-12 11:04] VITALS: BP 117/49; PULSE 71; TEMP 97.4
[2020-06-12 11:34] VITALS: BP 115/42; PULSE 70; TEMP 97.9
[2020-06-12 11:54] LABS: CALCIUM 8.9 mg/dL (8.4-10.2); CREATININE, serum 7.34 (0.52-1.25); POTASSIUM 4.8 mmol/L (3.4-5.0)
--- NOTE | 2020-06-12 15:05 | NUR ---
The patient is to discharge today 06/12, to [facility] for post acute rehab. The patient is to be transported at 1515. LUCAS contacted the patient's and he was in agreeance with the transport time. LUCAS faxed discharge orders. There are no additional needs.
[2020-06-12 15:44] LABS: HEMATOCRIT 29.6 % (37.0-47.0); HEMOGLOBIN 8.6 g/dl (12.5-16.0); MEAN CELL VOLUME 100 fl (80.0-100.0); MEAN CORPUSCULAR HEMOGLOBIN 29 pg (27.0-31.0); MEAN CORPUSCULAR HGB CONC 29 g/dl (33.0-37.0); MEAN PLATELET VOLUME 9.7 fl (7.4-10.4); PLATELET COUNT 179 K/mm3 (130-400); RED BLOOD COUNT 2.95 M/mm3 (4.10-5.30); REDCELL DISTRIBUTION WIDTH-CV 15.9 % (11.5-14.5)
--- NOTE | 2020-06-12 16:08 | NUR ---
pt got ready for discharge, iv in RAC removed, pt changed into her nightgown, pt taken out via wheelchair w/ oxygen tank. report called. no other needs
--- NOTE | 2020-06-12 16:31 | NUR ---
PT TAKEN DOWN VIA WHEELCHAIR, OUR WHEELCHAIR WOULD NOT FIT ON TRANSPORT VAN. TRANSFERRED TO VIA CHUCK WHEELCHAIR, OXYGEN TANK TAKEN WITH PT. NO OTHER NEEDS.
[2020-08-25] MEDS ORDERED: PACERONE200 MG PO (07:16)
[2020-08-25] MEDS ORDERED: ATARAX 25MG25 MG/TAB PO (07:20)
[2020-08-25] MEDS ORDERED: LASIX 20MG TABL20 MG PO (07:22)
[2020-08-25] MEDS ORDERED: HYZAAR 25 MG-101 TAB PO (07:24)
[2020-08-25] MEDS ORDERED: TOPROL XL 50MG50 MG PO (07:26)
[2020-08-25] MEDS ORDERED: RISPERDAL 1M1 MG/TAB PO (07:28)
== END 2020-06-12 16:30 | DRG 689 ==
LOC: COL.ER 14:40 → MEDICAL 17:22
PROVIDERS: Emergency Medicine; Physician Assistant; ADMIT Internal Medicine Nephrology
PROC: 5A1D70Z Performance of Urinary Filtration, Intermittent, Less than 6 Hours Per Day (ICD-10-PCS; principal; 2020-06-09)
DX: N39.0 Urinary tract infection, site not specified (principal); N18.6 End stage renal disease; G47.00 Insomnia, unspecified; E66.01 Morbid (severe) obesity due to excess calories; E03.9 Hypothyroidism, unspecified; I48.91 Unspecified atrial fibrillation; E11.22 Type 2 diabetes mellitus with diabetic chronic kidney disease; D50.9 Iron deficiency anemia, unspecified; F32.9 Major depressive disorder, single episode, unspecified; F41.9 Anxiety disorder, unspecified; Z90.49 Acquired absence of other specified parts of digestive tract; Z79.01 Long term (current) use of anticoagulants; D63.1 Anemia in chronic kidney disease
CPT/HCPCS: G0378; J0696; J0744; J1644; J2405; J2916; J7030; Q5105

== ENCOUNTER → 2020-08-25 | Outpatient (CLI) | payer MEDICARE ==
[~2020-08-25] VITALS: Ht 165.1 cm; Wt 150.0 kg
[~2020-08-25] MED LIST changes: +LASIX 80MG TABL80 MG PO
[2020-08-25 07:36] VITALS: BP 110/77; PULSE 62
[2020-08-25 07:58] LABS: INR 1.4 (0.8-3.0); PROTHROMBIN TIME 15.6 SECONDS (9.7-12.8)
[2020-08-25 08:30] VITALS: BP 144/71; PULSE 57
== END ==
LOC: COL.RAD 06:48
PROVIDERS: Internal Medicine Nephrology
DX: Z45.2 Encounter for adjustment and management of vascular access device (principal)

== ENCOUNTER 2020-11-25 06:03 | Inpatient (IN) | payer MEDICARE ==
[~2020-11-25] VITALS: Ht 170.2 cm; Wt 134.8 kg
[~2020-11-25 06:03] MED LIST changes: -LASIX 80MG TABL80 MG PO
[2020-11-25 06:44] LABS: BASO % 0.3 % (0.0-2.0); EOS # 0.2 (0.0-0.7); EOS % 3.2 % (0-4.0); GRAN # 5.6 (1.4-6.5); GRAN % 80.4 % (42.2-75.2); HEMOGLOBIN 10.7 g/dl (12.5-16.0); LYMPH # 0.6 (1.2-3.4); LYMPH % 8.5 % (20.0-51.0); MEAN CELL VOLUME 107 fl (80.0-100.0); MEAN CORPUSCULAR HEMOGLOBIN 32 pg (27.0-31.0); MEAN CORPUSCULAR HGB CONC 30 g/dl (33.0-37.0); MEAN PLATELET VOLUME 10.1 fl (7.4-10.4); MONO # 0.5 (0.1-0.6); MONO % 6.6 % (1.7-9.3); PLATELET COUNT 164 K/mm3 (130-400); RED BLOOD COUNT 3.33 M/mm3 (4.10-5.30); REDCELL DISTRIBUTION WIDTH-CV 15.5 % (11.5-14.5)
[2020-11-25 06:46] LABS: HEMATOCRIT 35.5 % (37.0-47.0)
[2020-11-25 06:52] LABS: ALBUMIN 3.5 gm/dL (3.5-5.0); BILIRUBIN,TOTAL 0.5 mg/dL (0.0-1.0); CALCIUM 9.8 mg/dL (8.4-10.2); CREATININE, serum 6.24 (0.52-1.25); POTASSIUM 4.2 mmol/L (3.4-5.0); TOTAL PROTEIN 7.2 gm/dL (6.4-8.2)
[2020-11-25 06:58] LABS: INR 3.2 (0.8-3.0); PROTHROMBIN TIME 35.4 SECONDS (9.7-12.8)
[2020-11-25 09:00] VITALS: BP 112/56; PULSE 67; TEMP 97.7
--- NOTE | 2020-11-25 09:00 | NUR ---
arrived on unit per cart from ED, assisted over off cart and onto bed with use slide board, assessment started, call lights within reach
--- NOTE | 2020-11-25 09:41 | NUR ---
resting in bed, YOUSUF Paredes in to see patient
--- NOTE | 2020-11-25 10:30 | NUR ---
full admission assessment completed, see interventions for further info, c/o pain to back of legs when assessed, has some warmness to touch but no redness noted, right leg appears slightly larger than the left,
--- NOTE | 2020-11-25 10:30 | NUR ---
full assessment completed, see interventions for further info, c/o pain to back of calves when touched, no redness or swelling noted, provided diet sprite per her request and grapes ordered, instructed to let staff know when she is ready to order lunch, verbalizes understanding
--- NOTE | 2020-11-25 11:16 | NUR ---
Dr Tai in to see patient
[2020-11-25 11:28] VITALS: BP 116/64; PULSE 65; TEMP 97.8
[2020-11-25 11:39] LABS: ALBUMIN 3.6 gm/dL (3.5-5.0); CALCIUM 10.1 mg/dL (8.4-10.2); CREATININE, serum 6.14 (0.52-1.25); PHOSPHOROUS 4.7 mg/dL (2.5-4.5)
[2020-11-25 11:45] LABS: POTASSIUM 4.3 mmol/L (3.4-5.0)
--- NOTE | 2020-11-25 14:05 | NUR ---
Patient is a PUI. community mental health worker contacted patients room to discuss discharge plan. Patient reports that she lives at home with her (Jeffry [phone]) her son Feliz and daughter Belinda. Patient reports that at home she receives help showering from her . She reports needing assistance getting out of bed in the morning due to a history of falls while getting out of bed. Patient uses a walker around he house and for long outings she uses a wheelchair.Patient's PCP is Dr. Diaz and uses [facility] for a pharmacy. Patient reports that she does not have a DPOA-HC established, but is interested in getting one. community mental health worker informed patient that when i nurse goes in, they will bring one to her. Patient plans to return home. *Discharge PLan: Home with family*
[2020-11-25 16:34] VITALS: BP 126/56; PULSE 67; TEMP 98.6
[2020-11-25 19:39] VITALS: BP 131/67; PULSE 75; TEMP 98.6
--- NOTE | 2020-11-25 22:54 | NUR ---
ALERT AND OX3. 20G TO RT AC FLUSHED W GOOD BLOOD RETURN. PM MEDS GIVEN ALONG W ANTIBOTICS. PT RATING BILATERL LOWER LEG PAIN A 12/26, TOOK NORCO IN PAST W GOOD RELIEF CALLED DR SAMPSON AND ORDER PLACED FOR PRN PAIN MED. PT SATURATED WITH URINE AND IS VERY LARGE, HARD TO MOVE IN BED AND IS TO WEAK TO STAND ALONG W LEG PAIN. CLEANED UP AND PUREWICK PLACED. CALL LIGHT WI REACH.
[2020-11-25 23:47] VITALS: BP 150/70; PULSE 79; TEMP 97.8
[2020-11-26 04:28] VITALS: BP 137/65; PULSE 72; TEMP 98
--- NOTE | 2020-11-26 05:27 | NUR ---
SLEPT THROUGH THE NIGHT WITHOUT INCIDENT. NEEDS MET
--- NOTE | 2020-11-26 07:55 | NUR ---
PT STATES THAT SHE HAS A 8/10 PAIN IN HER LEGS AND SHOULDERS. PT STATES SHE MAY NOT BE ABLE TO GIVE A URINE SAMPLE BY BED GONZALEZ, SO THIS RN MAY NEED TO STRAIGHT CATH. ASSESSEMENT COMPELTED. PT DENIES ANY BREATHING PROBLEMS. ORDERED BREAKFAST; PT DOES NOT WANT TO SIT UP DUE TO THE PAIN IN HER SHOULDERS AND LEGS. WILL RETURN SHORTLY.
[2020-11-26 08:15] LABS: MEAN CELL VOLUME 106 fl (80.0-100.0); MEAN CORPUSCULAR HGB CONC 31 g/dl (33.0-37.0); MEAN PLATELET VOLUME 10.1 fl (7.4-10.4); PLATELET COUNT 165 K/mm3 (130-400); RED BLOOD COUNT 2.97 M/mm3 (4.10-5.30); REDCELL DISTRIBUTION WIDTH-CV 15.5 % (11.5-14.5)
[2020-11-26 08:20] LABS: ALBUMIN 3.1 gm/dL (3.5-5.0); CALCIUM 9.5 mg/dL (8.4-10.2); CREATININE, serum 6.42 (0.52-1.25); PHOSPHOROUS 4.6 mg/dL (2.5-4.5); POTASSIUM 4.5 mmol/L (3.4-5.0)
[2020-11-26 08:23] LABS: HEMATOCRIT 31.5 % (37.0-47.0); HEMOGLOBIN 9.6 g/dl (12.5-16.0); MEAN CORPUSCULAR HEMOGLOBIN 32 pg (27.0-31.0)
[2020-11-26 08:38] VITALS: BP 115/57; PULSE 69; TEMP 98.1
[2020-11-26 09:36] LABS: BAND 5 % (0-10); EOSINOPHIL 3 % (0-4); LYMPHOCYTE 9 % (20.0-51.0)
[2020-11-26 09:37] LABS: ANISOCYTOSIS 1+; HYPOCHROMIA 2+; NEUTROPHILS 75 % (42.0-75.2); PLATELET ESTIMATE NORMAL (NORMAL)
--- NOTE | 2020-11-26 11:15 | NUR ---
PT REMAINS LAYING IN BED, NO CURRENT COMPLAINTS OF SEVERE PAIN. PT WILL HAVE DIALYSIS THIS AFTERNOON WITH DIALYSIS NURSE, LISBETH STONER. DISCUSSED THE CANCELLED PCR TEST WITH LABORATORY, [facility]. PER HER REPORT, THE PATIENT HAS A PENDING TEST WITH THE STATE, AND THIS MAY TAKE GREATER THAN 1 WEEK TO RETURN. NO OTHER CONCERNS AT THIS TIME. WILL DISCUSS THIS WITH LISBETH PARK.
--- NOTE | 2020-11-26 11:26 | NUR ---
AFTER DISCUSSION WITH LISBETH RODARTE INFECTIOUS DISEASE RN. THIS PT'S RESULTS SHOULD BE BACK TODAY, BUT NOT LIKELY BEFORE THE PATIENT WOULD NEED DIALYSIS. NO OTHER CONCERNS.
[2020-11-26 14:18] VITALS: BP 119/61; PULSE 67; TEMP 98
--- NOTE | 2020-11-26 14:54 | NUR ---
PT/OT are recommending SNF. LUCAS contacted the patient's room phone to discuss their recommendation. The patient states that she is interested in rehab. LUCAS informed her of the local SNFs and IPR. The patient chose [facility]. LUCAS informed her how [facility] is full at this time and they are unsure when they will have a bed. The patient verbalized understanding. The patient still prefers 1) [facility] 2) [facility]. LUCAS contacted and faxed a referral to both facilities. Awaiting screens. LUCAS attempted to contact the patient's , Jeffry, to update. LUCAS left him a voicemail. *Discharge plan: SNF*
[2020-11-26 15:18] LABS: INR 3.2 (0.8-3.0); PROTHROMBIN TIME 35.6 SECONDS (9.7-12.8)
[2020-11-26 15:19] LABS: COLLECTION METHOD CATHETER
[2020-11-26 15:31] LABS: MUCOUS Present /lpf; PH 6 (5-8); URINE APPEARANCE Cloudy; URINE BACTERIA Rare /hpf; URINE BILIRUBIN Negative (NEGATIVE); URINE BLOOD 2+ (NEGATIVE); URINE COLOR Yellow; URINE GLUCOSE Negative (NEGATIVE); URINE KETONE Negative (NEGATIVE); URINE LEUKOCYTE ESTERASE 3+ (NEGATIVE); URINE NITRATE Negative (NEGATIVE); URINE PROTEIN(semi-quant) 2+ (NEGATIVE); URINE UROBILINOGEN Negative (NEGATIVE)
[2020-11-26 16:39] VITALS: BP 124/60; PULSE 68; TEMP 98.7
--- NOTE | 2020-11-26 17:12 | NUR ---
PATIENT TOLERATED HD TX WITH 1.7L OF FLUID REMOVED. GRAPEFRUIT SIZE HEMATOMA @ LUE & ICE PACK APPLIED, FISTULA WORKING WELL. NEXT PLANNED HD TX ON Tuesday11/28/20 @ 0800.
--- NOTE | 2020-11-26 19:00 | NUR ---
PT'S LUE STILL HAS A GRAPEFRUIT SIZED HEMATOMA FROM DIALYSIS TODAY. ICE PACK WAS GIVEN FOR THE PATIENT TO USE TO REDUCE THE SWELLING. NO COMPLAINTS OF PAIN, HOWEVER, THE PATIENT IS UNABLE TO ROLL OVER HERSELF, AND REQUIRES 2 PEOPLE TO ASSIST WITH PERICARE. THE PATIENT HAS A PUREWICK IN PLACE, AND IT IS HOOKED UP TO CONTINUOUS LOW SUCTION. PT HAS HAD 1250ML OUTPUT THIS SHIFT. THERE ARE NO OTHER CONCERNS AT THIS TIME. REPORT HAS BEEN GIVEN TO LISBETH BRICE.
[2020-11-26 19:55] VITALS: BP 125/61; PULSE 71; TEMP 97.5
--- NOTE | 2020-11-26 22:17 | NUR ---
ALERT AND OX4. PM MEDS GIVEN ALONG W NORCO FOR PAIN. DENIES SOA, CHEST PAIN OR DIZZY. ASSESSMENT COMPLETE, HARD TO ASSESS SKIN PT IS SO LARGE DOES NOT MOVE WELL. PUREWICK IN PLACE. FISTULA TO LEFT UPPER ARM BULGING, DR BEY AWARE AND WAS SUPPOSE TO STOP BY TO SEE PT AND HAS NOT OF YET. POC DISCUSSED. NEEDS MET.
[2020-11-27 00:49] VITALS: BP 130/68; PULSE 71; TEMP 97.8
--- NOTE | 2020-11-27 05:26 | NUR ---
RESTED THOUGH THE NIGHT WITHOUT INCIDENT. FISTULA TO LEFT UPPER ARM STILL HAS LARGE ORANGE SIZE SWELLING. PT DENIES PAIN, NO BLEEDING. NEEDS MET.
[2020-11-27 07:25] LABS: MEAN CELL VOLUME 106 fl (80.0-100.0); MEAN CORPUSCULAR HGB CONC 30 g/dl (33.0-37.0); MEAN PLATELET VOLUME 10.2 fl (7.4-10.4); PLATELET COUNT 188 K/mm3 (130-400); REDCELL DISTRIBUTION WIDTH-CV 15.6 % (11.5-14.5)
[2020-11-27 07:26] LABS: HEMATOCRIT 32.9 % (37.0-47.0); HEMOGLOBIN 9.9 g/dl (12.5-16.0); MEAN CORPUSCULAR HEMOGLOBIN 32 pg (27.0-31.0)
[2020-11-27 07:33] LABS: ALBUMIN 3.3 gm/dL (3.5-5.0); CALCIUM 9.5 mg/dL (8.4-10.2); CREATININE, serum 5.45 (0.52-1.25); PHOSPHOROUS 4.4 mg/dL (2.5-4.5); POTASSIUM 4.5 mmol/L (3.4-5.0)
[2020-11-27 07:56] VITALS: BP 110/58; PULSE 64; TEMP 98
--- NOTE | 2020-11-27 08:41 | NUR ---
Catrachita, at [facility], reports that they have declined the patient, due to high medical complexity.
[2020-11-27 09:14] LABS: BAND 10 % (0-10); EOSINOPHIL 4 % (0-4); LYMPHOCYTE 8 % (20.0-51.0); METAMYELOCYTE 3 % (0-0); NEUTROPHILS 68 % (42.0-75.2)
[2020-11-27 09:15] LABS: PLATELET ESTIMATE NORMAL (NORMAL)
[2020-11-27 09:16] LABS: HYPOCHROMIA 1+
--- NOTE | 2020-11-27 11:01 | NUR ---
PT'S FISTULA REMAINS ENLARGED, SOFTBALL SIZED TODAY. PT DOES SAY IT IS TENDER TO TOUCH. THERE IS REDNESS, EDEMA AND BRUISING ASSOCIATED WITH THAT PAIN WELL. THE PATIENT STATES THAT IS DOES NOT FEEL "OUT OF THE ORDINARY, OTHER THAN THE SWELLING". NO CONCERNS REGARDING THIS PATIENT. WILL CONTINUE TO MONITOR.
[2020-11-27 12:40] VITALS: BP 114/57; PULSE 53; TEMP 98
--- NOTE | 2020-11-27 13:16 | NUR ---
PT IS SITTING UP IN BED AT THIS TIME EATING LUNCH. MEDS PER MAR HAVE BEEN GIVEN. NO OTHER CONCERNS AT THIS TIME. WAITING RESULTS OF COVID PCR.
--- NOTE | 2020-11-27 14:31 | NUR ---
Brady, at [facility], states that if the patient's chair time is on M/W/F between the times 8181-6132, then they would be able to meet the patient's needs. LUCAS contacted [facility] and acquired the patient's chair time: // at 0600. The wood heel flap rubber reports that M/W/F are completing full and they are unable to switch the patient's chair time. LUCAS notified Brady at [facility] of this and asked if they would be able to accomodate this time. Awaiting a response. LUCAS then received a phone call back from the patient's , Jeffry. LUCAS updated him on the referrals. Jeffry is open to sending more referrals. He states that his daughter actually works at [facility]. LUCAS consulted IPR Director, Jacquie. LUCAS contacted and faxed a referral to Belinda at [facility]. Awaiting screens. The patient remains a PUI at this time.
--- NOTE | 2020-11-27 14:38 | NUR ---
Brady, at [facility], reports that they are unable to accomodate a T/Th/S chair time and therefore, would not be able to accept the patient.
[2020-11-27 16:00] VITALS: BP 120/58; PULSE 66; TEMP 98.4
[2020-11-27 17:21] LABS: INR 3.3 (0.8-3.0); PROTHROMBIN TIME 36.7 SECONDS (9.7-12.8)
[2020-11-28] VITALS (7 sets, daily range): BP systolic 97–114; BP diastolic 42–56; PULSE 63–69; TEMP 97.6–98.8
--- NOTE | 2020-11-28 06:05 | NUR ---
RESTED THROUGH THE NIGHT WO INCIDENT. NEEDS MET.
--- NOTE | 2020-11-28 06:30 | NUR ---
Report received from LISBETH Alexandra. PT in bed resting with eyes closed, will continue to monitor.
[2020-11-28 08:03] LABS: MEAN CELL VOLUME 105 fl (80.0-100.0); MEAN CORPUSCULAR HGB CONC 31 g/dl (33.0-37.0); MEAN PLATELET VOLUME 9.9 fl (7.4-10.4); PLATELET COUNT 214 K/mm3 (130-400); PROTHROMBIN TIME 33.9 SECONDS (9.7-12.8); RED BLOOD COUNT 2.96 M/mm3 (4.10-5.30); REDCELL DISTRIBUTION WIDTH-CV 15.7 % (11.5-14.5)
[2020-11-28 08:05] LABS: HEMATOCRIT 31.2 % (37.0-47.0); HEMOGLOBIN 9.6 g/dl (12.5-16.0); MEAN CORPUSCULAR HEMOGLOBIN 32 pg (27.0-31.0)
[2020-11-28 08:09] LABS: ALBUMIN 3.1 gm/dL (3.5-5.0); CALCIUM 9.6 mg/dL (8.4-10.2); CREATININE, serum 6.38 (0.52-1.25); PHOSPHOROUS 5.6 mg/dL (2.5-4.5); POTASSIUM 4.4 mmol/L (3.4-5.0)
[2020-11-28 10:03] LABS: BAND 19 % (0-10); NEUTROPHILS 54 % (42.0-75.2)
[2020-11-28 10:04] LABS: EOSINOPHIL 4 % (0-4); LYMPHOCYTE 10 % (20.0-51.0); METAMYELOCYTE 6 % (0-0); MYELOCYTE 1 % (0-0); PLATELET ESTIMATE NORMAL (NORMAL)
--- NOTE | 2020-11-28 10:34 | NUR ---
Initial visit; Patient thanked Class C Driver for looking in on her and offering prayer and God's blessings.
--- NOTE | 2020-11-28 10:36 | NUR ---
Assessment charted. Pt is alert and oriented, requires assistance with a lot of needs. Morbidly obese, reddened on sacrem, pannus, under breasts, feet, BLE. LUE fistula has hematoma, KPAD in room to assist. INT to RFA. PRN pain mesd provided for pain of 7/10 to BLE. Purewick draining yossi hazy urine. Pt able to stand with PT assistance but required a lot of assistance to not fall backwards.
--- NOTE | 2020-11-28 16:39 | NUR ---
Jacquie, IPR Director, reports that they have declined the patient. LUCAS contacted Belinda at [facility] to follow up on referral. Belinda reports that she is waiting to hear back from the doctor and that they may not have an answer by today. LUCAS faxed updates to [facility]. LUCAS updated the patient's attending. LUCAS contacted Belinda again. Belinda reports that their doctor was wanting further updates and she provided him with the updates LUCAS faxed over. Belinda reports that they will not know anything until tomorrow. She states that they will contact the oncology navigator case management social worker tomorrow.
--- NOTE | 2020-11-28 19:26 | NUR ---
Pt has rested most of shift. Pt does need re-education on sitting upright for meals, found pt to be laying very flat often for meals and trying to feed self that way. pt does not call when wet or incontient, purewick replaced 3 times over shift to try and get better fit. Pt does not seem motivated to move on own, but is agreeable and pleasant to suggestion. Denies needs, report given to nightshift nurse who will resume care.
--- NOTE | 2020-11-28 22:23 | NUR ---
Shift assessment completed. Patient pleasant, alert and oriented. Patient lying in bed flat. Patient reports generalized pain to her back and lower extremities. PRN Conger given per JUN. All scheduled meds given per JUN. Ice water provided per Patient request. Call light within reach. Will continue to monitor.
[2020-11-29 03:15] VITALS: BP 97/48; PULSE 61; TEMP 98.7
[2020-11-29 08:16] VITALS: BP 111/57; PULSE 62; TEMP 97.8
[2020-11-29 09:46] LABS: MEAN CELL VOLUME 106 fl (80.0-100.0); MEAN CORPUSCULAR HGB CONC 30 g/dl (33.0-37.0); MEAN PLATELET VOLUME 9.6 fl (7.4-10.4); PLATELET COUNT 273 K/mm3 (130-400); RED BLOOD COUNT 3.04 M/mm3 (4.10-5.30); REDCELL DISTRIBUTION WIDTH-CV 15.4 % (11.5-14.5)
[2020-11-29 09:50] LABS: HEMATOCRIT 32.2 % (37.0-47.0); HEMOGLOBIN 9.8 g/dl (12.5-16.0); MEAN CORPUSCULAR HEMOGLOBIN 32 pg (27.0-31.0)
[2020-11-29 09:52] LABS: INR 2.7 (0.8-3.0); PROTHROMBIN TIME 29.7 SECONDS (9.7-12.8)
[2020-11-29 09:54] LABS: ALBUMIN 3.3 gm/dL (3.5-5.0); CALCIUM 9.5 mg/dL (8.4-10.2); CREATININE, serum 6.92 (0.52-1.25); PHOSPHOROUS 6.5 mg/dL (2.5-4.5); POTASSIUM 4.4 mmol/L (3.4-5.0)
[2020-11-29 10:10] LABS: BAND 15 % (0-10); EOSINOPHIL 9 % (0-4); LYMPHOCYTE 12 % (20.0-51.0); METAMYELOCYTE 2 % (0-0); NEUTROPHILS 60 % (42.0-75.2); PLATELET ESTIMATE NORMAL (NORMAL)
--- NOTE | 2020-11-29 10:36 | NUR ---
PT TRANSPORTED TO DIALYSIS AT 1025 VIA BED BY MEDICAL STAFF.
--- NOTE | 2020-11-29 13:50 | NUR ---
Patient tolerated HD tx with no fluid removal today. 2nd tx a hematoma developed after venous site cannulated. Ice pack applied to site & Dr. Tai aware.
--- NOTE | 2020-11-29 14:30 | NUR ---
SW called by [facility] staff to state that they are unable to accept patient. SW attempted to contact spouse Jeffry at [phone] unable to reach to inform. LUCAS will continue to follow.
--- NOTE | 2020-11-29 14:55 | NUR ---
PT BACK TO MEDICAL FLOOR AT APPROXIMATELY 1440 VIA BED BY DIALYSIS STAFF.
[2020-11-29 17:05] VITALS: BP 97/42; PULSE 60; TEMP 98
--- NOTE | 2020-11-29 18:39 | NUR ---
PT REMAINS IN BED, THIS NURSE ATTEMPTED TO MOVE TO CHAIR, PT STATES "MAYBE LATER" , MEDICATION ADMINISTERED ORDERED, PT REPORTS PAIN 5/10 TO BACK AND LEGS, PT EXPRESSES NO ADDITIONAL NEEDS AT THIS TIME. CALL LIGHT WITHIN REACH.
[2020-11-29 19:46] VITALS: BP 99/47; PULSE 64; TEMP 98.1
--- NOTE | 2020-11-29 23:41 | NUR ---
Shift assessment completed. Patient laying in bed with HOB elevated 20 degrees. Patient reports moderate pain to her bilateral lower legs. PRN Coleman given per patient request. Patient denies SOB/dyspnea, N/V, or diarrhea. Left upper arm fistula site dressing C/D/I and hematoma still present. Bilateral lower extremity cellulitis site still has +2 pitting edema and warm to touch. All scheduled meds given per JUN. Will continue to monitor.
[2020-11-30 00:26] VITALS: BP 100/47; PULSE 64; TEMP 97.7
[2020-11-30 04:10] VITALS: BP 100/47; PULSE 85; TEMP 98.5
--- NOTE | 2020-11-30 06:30 | NUR ---
PRN [place] given Q4 hrs throughout the night per patient request for lower extremity pain. Call light within reach.
--- NOTE | 2020-11-30 08:05 | NUR ---
Shift assessment complete. Pt lying in bed, A&Ox4. Hand dry box tender weak bilaterally and minimal movement of extremities. Pt reports pain to BLE, worse in left leg. Heart RRR. Lungs CTA. Requests Mobile when due again and ice pack to left upper arm fistula site. Will continue to monitor.
[2020-11-30 08:34] VITALS: BP 106/52; PULSE 62; TEMP 98.1
--- NOTE | 2020-11-30 11:00 | NUR ---
Pt assisted from bed into recliner by this RN and PROPOSAL REP using walker and gait belt at 0950. Gait weak and pt helping minimally w/transfers. Remained in recliner for one hour before asking to get back to bed. Assisted x2 max assist back to bed w/walker and gait belt.
[2020-11-30 11:16] VITALS: BP 88/45; PULSE 64; TEMP 97.8
[2020-11-30 14:06] LABS: MEAN CELL VOLUME 106 fl (80.0-100.0); MEAN CORPUSCULAR HGB CONC 30 g/dl (33.0-37.0); MEAN PLATELET VOLUME 9.3 fl (7.4-10.4); PLATELET COUNT 282 K/mm3 (130-400); RED BLOOD COUNT 2.93 M/mm3 (4.10-5.30); REDCELL DISTRIBUTION WIDTH-CV 15.5 % (11.5-14.5)
[2020-11-30 14:10] LABS: HEMATOCRIT 30.9 % (37.0-47.0); HEMOGLOBIN 9.4 g/dl (12.5-16.0); MEAN CORPUSCULAR HEMOGLOBIN 32 pg (27.0-31.0)
[2020-11-30 14:13] LABS: INR 2.4 (0.8-3.0); PROTHROMBIN TIME 27.1 SECONDS (9.7-12.8)
[2020-11-30 15:04] LABS: BAND 11 % (0-10); BASOPHIL 1 % (0-2); EOSINOPHIL 3 % (0-4); LYMPHOCYTE 16 % (20.0-51.0); METAMYELOCYTE 6 % (0-0); NEUTROPHILS 59 % (42.0-75.2)
[2020-11-30 15:05] LABS: PLATELET ESTIMATE NORMAL (NORMAL)
[2020-11-30 15:06] LABS: ANISOCYTOSIS 1+; HYPOCHROMIA 3+
[2020-11-30 17:06] VITALS: BP 119/54; PULSE 66; TEMP 98.3
[2020-11-30 20:26] VITALS: BP 116/46; PULSE 68; TEMP 97.7
--- NOTE | 2020-11-30 23:25 | NUR ---
ALERT AND OX4. KPAD APPLIED TO LT UPPER ARM, FISTULA SITE. DENIES SOA OR DIZZY. RATING PAIN IN LOWER LEG 4 WHEN NO MOVE, 8 W MOVEMENT. NORCO GIVEN ALONG W PM MEDS. PUREWICK ON W GOOD URINE OUTPT. PT CAN NOT ROLL FAR ENOUGH OVER TO VISULIZE BOTTOM, SKIN. CALL LIGHT WI REACH. 2330- DR SAMPSON ORDERS VITK , 2MG GIVEN. NPO AT MIDNIGHT FOR FISTULAGRAM. PT AWARE.
[2020-12-01] VITALS (7 sets, daily range): BP systolic 94–146; BP diastolic 30–57; PULSE 66–79; TEMP 97.7–98.5
--- NOTE | 2020-12-01 05:46 | NUR ---
RESTED THOUGH THE NIGHT WITHOUT INCIDENT.
--- NOTE | 2020-12-01 07:00 | NUR ---
Report received from LISBETH Alexandra. PT in bed resting, will continue to monitor.
[2020-12-01 07:26] LABS: INR 2.1 (0.8-3.0); PROTHROMBIN TIME 23.6 SECONDS (9.7-12.8)
[2020-12-01 09:44] LABS: MEAN CELL VOLUME 107 fl (80.0-100.0); MEAN CORPUSCULAR HGB CONC 31 g/dl (33.0-37.0); MEAN PLATELET VOLUME 9.4 fl (7.4-10.4); PLATELET COUNT 330 K/mm3 (130-400); RED BLOOD COUNT 2.73 M/mm3 (4.10-5.30); REDCELL DISTRIBUTION WIDTH-CV 15.5 % (11.5-14.5)
[2020-12-01 09:45] LABS: HEMATOCRIT 29.2 % (37.0-47.0); HEMOGLOBIN 8.9 g/dl (12.5-16.0); MEAN CORPUSCULAR HEMOGLOBIN 33 pg (27.0-31.0)
[2020-12-01 10:18] LABS: CALCIUM 9.5 mg/dL (8.4-10.2); CREATININE, serum 5.77 (0.52-1.25); PHOSPHOROUS 5.6 mg/dL (2.5-4.5); POTASSIUM 4.6 mmol/L (3.4-5.0)
--- NOTE | 2020-12-01 10:25 | NUR ---
LUCAS contacted Belinda at [facility] and confirmed that they declined the patient. LUCAS notified Jacquie with IPR. Jacquie reports that they do not feel like the patient is an IPR candidate. LUCAS contacted and updated the patient's , Jeffry. Jeffry was agreeable to send more referrals. LUCAS contacted and faxed referrals to [facility], [facility], [facility], [facility], and [facility]. Marjorie, at [facility], reports that they are not accepting new admissions at this time. [facility] reports that they do not transport to dialysis. Awaitings screens from the other facilities. LUCAS updated LISBETH Rich with Dr. Tai.
[2020-12-01 10:42] LABS: BAND 17 % (0-10); EOSINOPHIL 3 % (0-4); LYMPHOCYTE 8 % (20.0-51.0); METAMYELOCYTE 4 % (0-0); NEUTROPHILS 64 % (42.0-75.2); PLATELET ESTIMATE NORMAL (NORMAL)
--- NOTE | 2020-12-01 11:40 | NUR ---
SW contacted and faxed a referral to [facility].
--- NOTE | 2020-12-01 12:00 | NUR ---
Selene, at [facility], reports that they have declined the patient.
--- NOTE | 2020-12-01 12:51 | NUR ---
Maine, at [facility], reports that they have declined the patient. They do not have enough staff to tranpsport the patient to and from dialysis.
--- NOTE | 2020-12-01 12:54 | NUR ---
Patient tolerated HD tx with BFR @ 500 & no issues with AVF today. AVF remains echhymotic & swollen @ medial side of LUE from previous infiltrate on 11/26/20. Removed 500 mL of fluid today, attempted more fluid removal but pt's Bp systolic in the 90's. Next planned HD tx on Sunday 12/03 @ [facility] in [place].
--- NOTE | 2020-12-01 15:15 | NUR ---
Pt returned from Dialysis earlier this afternoon, resting in bed, does not want to work with PT this afternoon as she is "worn out from dialysis". Resting quietly in bed, does not call for help or notify staff when incontinent. Purewick in place. Hematoma healing to MARY fistula site. RFA INT. BLE cellulitis remains present and L outer hip wound/scab found this am. Pt denies pain but does ask for PRN pain meds for chronci bck pain. Will continue to monitor and sports development officer eport to chas Cutler who will resume care.
--- NOTE | 2020-12-01 16:11 | NUR ---
bedside shift report received from LISBETH Etienne
--- NOTE | 2020-12-01 17:00 | NUR ---
resting in bed, called and wanted to be assisted with bowel movement, instructed her to push and does not need assistance, was able to have large hard black stool, care provided, she is alert and oreinted, has 3cm sore to left outer hip that resembles a "burn", is open to air, heart rate strong and regular, lungs CTA, bowel sounds present, peripheral pulses present in all 4 extrmities, denies needs at this time
--- NOTE | 2020-12-01 19:11 | NUR ---
bedside shift report given to LISBETH vega
--- NOTE | 2020-12-02 01:31 | NUR ---
ALERT AND OX4. SPOUSE AT BEDSIDE THIS EVENING. DAUGHTER HAD BROUGHT UP PHONE. PT RATING PAIN 4-8 BILATERAL LEGS. PM MEDS GIVEN. ASSESSMNT COMPLETE. POC DISCUSSED. PT AWAITING APPROVAL FOR BED IN REHAB, NO ACCEPTED YET. CALL LIGHT WI REACH. NEEDS MET,
[2020-12-02 04:46] VITALS: BP 115/54; PULSE 67; TEMP 98
--- NOTE | 2020-12-02 05:32 | NUR ---
RESTED THROUGH THE NIGHT WITHOUT INCIDENT. NPO FOR FISTULAGRAM THIS AM .
[2020-12-02 07:42] VITALS: BP 134/54; PULSE 66; TEMP 98.5
--- NOTE | 2020-12-02 08:15 | NUR ---
Pt assessment completed and charted, pt NPO for fistulogram today. Pt laying in bed, minimal assistance from patient in cares. Pt on room air, denies SOB, dizziness, N/V/D, chest pain. Pt c/o pain to Rt shoulder, refused hot pack or ice, requested tylenol, administered per jun. Pt has purewick in place, draining cloudy yellow urine. LUE fistula in place, swollen and bruised, bruit and thrill present. Per pt bruising "has improved" to LUE. LLE/foot edema. No further concerns expressed at this time. Call light within reach. VSS.
[2020-12-02 11:03] LABS: INR 1.5 (0.8-3.0); PROTHROMBIN TIME 16.8 SECONDS (9.7-12.8)
[2020-12-02 11:22] VITALS: BP 103/53; PULSE 70; TEMP 98.2
--- NOTE | 2020-12-02 14:58 | NUR ---
Pt c/o ble pain, tylenol provided per jun @ 1215. Pt able to work with PT and get up to chair late this morning. Pt is cooperative w/ cares w/ encouragement.
[2020-12-02 15:32] VITALS: BP 131/62; PULSE 67; TEMP 97.8
--- NOTE | 2020-12-02 15:33 | NUR ---
[facility] reports that they have declined the patient. Ashly, at [facility], reports that they are already transporting another patient to and from [place] and would not be able to take on the patient at this time. They declined the patient. LUCAS inquired if they could take the patient, if the patient's transported. Ashly reports that she would need to talk to her records administrator. She reports that the patient does not have a secondary insurance and that they would also require two weeks payment up front. LUCAS contacted the patient's , Jeffry, and updated him on the above. Jeffry reports that he works and would not be able to go up to [place] three times a week and transport the time. LUCAS inquired about Medicaid. Jeffry reports that he had considered applying for Medicaid, but does not want to sign over or lose any of their assests. LUCAS contacted Brady at [facility] to inquire if they could take the patient with her same chair time, if the patient's transported her to dialysis in [place]. Brady reports that they would not, in the event her could not transport her on one of those days. LUCAS updated the patient's attending on the above. His attending would like to see if IPR will consider. LUCAS consulted IPR Director, Jacquie. Jacquie reports that the patient is not a candidate and declined the patient. LUCAS contacted [facility], [facility], [facility], and [facility]. They all report that they do not have staff available to transport to dialysis. LUCAS contacted and faxed a referral to [facility] [place] [facility]. Awaiting screens.
--- NOTE | 2020-12-02 16:39 | NUR ---
Po, at [facility], reports that they can accept the patient and should have a bed available tomorrow. He reports that they accomodate dialysis and are able to provide transportation. He states that he will get in contact with SW tomorrow morning. SW attempted to contact and update the patient's , Jeffry. SW left him a voicemail. SW met with the patient to update. The patient states that she feels like she has improved and would like to stay until Tuesday and then return home. LUCAS attempted to update Dr. Tai. SW left him a voicemail.
[2020-12-02 19:00] VITALS: BP 117/55; PULSE 67; TEMP 97.9
--- NOTE | 2020-12-02 21:56 | NUR ---
ALERT AND OX4. SETTING UP IN CHAIR THIS EVENING . 1 ASST BACK TO BED, PURE WICK APPPLIED. PM MEDS GIVEN. IV FLUSHED. RATING PAIN 6/10 BILATERAL LEGS. DSG TO LT LEG, OPEN AREA. STILL AWAITING PLACEMENT. CALL LIGHT WI REACH. LIGHTS DOWN .
[2020-12-02 23:58] VITALS: BP 127/56; PULSE 72; TEMP 98
[2020-12-03 04:44] VITALS: BP 118/55; PULSE 71; TEMP 97.7
--- NOTE | 2020-12-03 04:58 | NUR ---
RESTED THROUGH THE NIGHT WITHOUT INCIDENT. NEEDS MET.
--- NOTE | 2020-12-03 07:00 | NUR ---
Report with LISBETH Alexandra. Pt resting in bed with eyes closed, resp even and unlabored. Call light in reach.
--- NOTE | 2020-12-03 08:01 | NUR ---
Assessment complete. Pt resting in bed, awake, oriented x 4. This nurse explains plan for hemodialysis this morning, encouraging pt to order breakfast and she agrees. 2+ edema to left lower ext, 1+ edema to right lower ext. Physical assessment otherwise unremarkable. No further needs reported. Call light in reach.
--- NOTE | 2020-12-03 08:56 | NUR ---
Pt to rm 321 for hemodialysis via bed. Purewick remains in place with clear yellow urine. Pt's breakfast taken to pt in dialysis room.
--- NOTE | 2020-12-03 08:57 | NUR ---
LUCAS contacted the patient's , Jeffry, and updated him on the [facility]'s acceptance. Jeffry is open to the patient going there, but he states that he knows the patient is hesitant about going there. He states it will be up to the patient. LUCAS to collaborate with the patient's attending.
[2020-12-03 09:00] VITALS: BP 135/58; PULSE 67; TEMP 97.7
[2020-12-03 09:24] LABS: MEAN CELL VOLUME 107 fl (80.0-100.0); MEAN CORPUSCULAR HGB CONC 30 g/dl (33.0-37.0); MEAN PLATELET VOLUME 9.1 fl (7.4-10.4); PLATELET COUNT 298 K/mm3 (130-400); RED BLOOD COUNT 2.72 M/mm3 (4.10-5.30); REDCELL DISTRIBUTION WIDTH-CV 15.5 % (11.5-14.5)
[2020-12-03 09:25] LABS: HEMATOCRIT 29.1 % (37.0-47.0); HEMOGLOBIN 8.7 g/dl (12.5-16.0); MEAN CORPUSCULAR HEMOGLOBIN 32 pg (27.0-31.0)
[2020-12-03 09:26] LABS: INR 1.5 (0.8-3.0); PROTHROMBIN TIME 16.2 SECONDS (9.7-12.8)
[2020-12-03 09:28] LABS: ALBUMIN 2.7 gm/dL (3.5-5.0); CALCIUM 9.7 mg/dL (8.4-10.2); CREATININE, serum 4.42 (0.52-1.25); PHOSPHOROUS 5.7 mg/dL (2.5-4.5); POTASSIUM 4.9 mmol/L (3.4-5.0)
[2020-12-03 10:16] LABS: BAND 5 % (0-10); BASOPHIL 1 % (0-2); EOSINOPHIL 2 % (0-4); LYMPHOCYTE 10 % (20.0-51.0); METAMYELOCYTE 2 % (0-0); MYELOCYTE 1 % (0-0); NEUTROPHILS 74 % (42.0-75.2)
[2020-12-03 10:17] LABS: HYPOCHROMIA 3+; PLATELET ESTIMATE NORMAL (NORMAL)
[2020-12-03 10:18] LABS: ANISOCYTOSIS 1+; MICROCYTOSIS 1+; POLYCHROMASIA 1+
--- NOTE | 2020-12-03 12:19 | NUR ---
Pt back to room following hemodialysis via bed.
[2020-12-03 12:22] VITALS: BP 98/44; PULSE 65; TEMP 98.5
--- NOTE | 2020-12-03 14:46 | NUR ---
PATIENT TOLERATED HD TX WITH 2L FLUID REMOVAL. NEXT PLANNED HD TX TOMORROW ON Tuesday12/04/20 @ 0800.
--- NOTE | 2020-12-03 15:11 | NUR ---
Dr. Tai arrived to the hospital. LUCAS connected Dr. Tai with the patient's , Jeffry. Dr. Tai had a conversation with the patient and her . The patient is not wanting to go to the [facility] is [place]. She is wanting to return home with her family. Plan is for the patient to discharge back home with her family tomorrow, 12/04. LUCAS met with the patient and discussed home health services. The patient was agreeable to home health. She states that she had [facility] in the past and chose them again. LUCAS contacted and faxed a referral to [facility]. Awaiting screen. *Discharge plan: home with family and home health*
[2020-12-03 16:37] VITALS: BP 152/57; PULSE 69; TEMP 97.8
[2020-12-03 19:46] VITALS: BP 131/52; PULSE 68; TEMP 99
[2020-12-04 00:01] VITALS: BP 101/45; PULSE 67; TEMP 98.3
[2020-12-04 05:14] VITALS: BP 129/56; PULSE 74; TEMP 98.1
--- NOTE | 2020-12-04 07:00 | NUR ---
Report from LISBETH Tirado. Pt resting in bed, drowsy but awake and preparing to order breakfast. No needs reported. Call light in reach.
[2020-12-04 07:21] VITALS: BP 121/58; PULSE 65; TEMP 98.9
[2020-12-04 07:50] LABS: PATHOLOGY DIFF REVIEW OK
--- NOTE | 2020-12-04 07:50 | NUR ---
Assessment complete. Pt resting in bed, A&O x 3, reports breakfast was just ordered. This nurse reviews plan for a short run of HD this morning. Pt verbalizes understanding. Fistula to left upper arm with bruising, warm to touch and hard, but strong thrill. Physical assessment otherwise unremarkable. No further needs reported. Call light in reach.
--- NOTE | 2020-12-04 09:15 | NUR ---
Pt to rm 321 for hemodialysis via .
[2020-12-04 09:50] LABS: MEAN CELL VOLUME 107 fl (80.0-100.0); MEAN CORPUSCULAR HGB CONC 30 g/dl (33.0-37.0); MEAN PLATELET VOLUME 8.8 fl (7.4-10.4); PLATELET COUNT 291 K/mm3 (130-400); RED BLOOD COUNT 2.89 M/mm3 (4.10-5.30); REDCELL DISTRIBUTION WIDTH-CV 15.8 % (11.5-14.5)
[2020-12-04 09:52] LABS: HEMATOCRIT 30.8 % (37.0-47.0); HEMOGLOBIN 9.3 g/dl (12.5-16.0); MEAN CORPUSCULAR HEMOGLOBIN 32 pg (27.0-31.0)
[2020-12-04 10:07] LABS: ALBUMIN 3.3 gm/dL (3.5-5.0); CALCIUM 9.9 mg/dL (8.4-10.2); CREATININE, serum 3.59 (0.52-1.25); PHOSPHOROUS 4.6 mg/dL (2.5-4.5); POTASSIUM 4.7 mmol/L (3.4-5.0)
[2020-12-04 10:18] LABS: BAND 8 % (0-10); EOSINOPHIL 3 % (0-4); LYMPHOCYTE 17 % (20.0-51.0); METAMYELOCYTE 4 % (0-0); NEUTROPHILS 61 % (42.0-75.2); PLATELET ESTIMATE NORMAL (NORMAL)
[2020-12-04 10:19] LABS: ANISOCYTOSIS 1+
[2020-12-04] MEDS ORDERED: CIPRO 500MG TA500 MG PO (10:36)
[2020-12-04] MEDS ORDERED: LASIX 80MG TABL80 MG PO (10:38)
--- NOTE | 2020-12-04 11:34 | NUR ---
PATIENT TOLERATED HD TX WITH 1.7 L FLUID REMOVAL TODAY. NEXT PLANNED HD TX ON Tuesday12/05/20 @ [facility].
[2020-12-04] MEDS ORDERED: TOPROL XL 25MG25 MG PO (11:42)
[2020-12-04] MEDS ORDERED: MEGACE 40MG40 MG/TAB PO (11:49)
--- NOTE | 2020-12-04 12:00 | NUR ---
Pt back to room 359 following HD via WC. Saba changed per pt's request, planning to discharge around 1700 today. No further needs reported. Call light in reach.
[2020-12-04 12:09] VITALS: BP 118/54; PULSE 64; TEMP 97.7
--- NOTE | 2020-12-04 14:37 | NUR ---
vegetable worker faxed discharge orders to [facility] health.
--- NOTE | 2020-12-04 17:45 | NUR ---
Discharge instructions reviewed with pt and pt's regarding new medication/changes and follow-up labs. Pt discharged home, escorted out of facility via WC accompanied by PROJECT CONTROLS SCHEDULER and pt's .
== END 2020-12-04 17:50 | disposition home health service (06) | DRG 602 ==
LOC: COL.ER 06:03 → MEDICAL 07:54
PROVIDERS: Personal Emergency Response Attendant; ADMIT Internal Medicine Nephrology
PROC: 5A1D70Z Performance of Urinary Filtration, Intermittent, Less than 6 Hours Per Day (ICD-10-PCS; principal; 2020-11-26)
DX: L03.116 Cellulitis of left lower limb (principal); N18.6 End stage renal disease; N39.0 Urinary tract infection, site not specified; I12.0 Hypertensive chronic kidney disease with stage 5 chronic kidney disease or end stage renal disease; T82.898A Other specified complication of vascular prosthetic devices, implants and grafts, initial encounter; Z68.42 Body mass index [BMI] 45.0-49.9, adult; L03.115 Cellulitis of right lower limb; Z99.2 Dependence on renal dialysis; I48.91 Unspecified atrial fibrillation; Z79.01 Long term (current) use of anticoagulants; E11.22 Type 2 diabetes mellitus with diabetic chronic kidney disease; Z91.81 History of falling; N93.9 Abnormal uterine and vaginal bleeding, unspecified; F32.9 Major depressive disorder, single episode, unspecified; E66.01 Morbid (severe) obesity due to excess calories; E78.5 Hyperlipidemia, unspecified; E03.9 Hypothyroidism, unspecified; G47.33 Obstructive sleep apnea (adult) (pediatric); Z88.5 Allergy status to narcotic agent; Z88.0 Allergy status to penicillin; Z88.2 Allergy status to sulfonamides; Z20.822 Contact with and (suspected) exposure to COVID-19
CPT/HCPCS: OP; J0696; J1644; J1756; J7030; J7040; Q5105

== ENCOUNTER 2021-11-12 17:28 | Emergency (ER) | payer MEDICARE ==
[~2021-11-12] VITALS: Ht 162.6 cm; Wt 121.8 kg
[~2021-11-12 17:28] MED LIST changes: +LASIX 80MG TABL80 MG PO
[2021-11-12 17:49] VITALS: TEMP 98.3
[2021-11-12 18:36] LABS: BASO % 0.6 % (0.0-2.0); EOS # 0.3 K/mm3 (0.0-0.7); EOS % 3.9 % (0.0-4.0); GRAN # 5.2 K/mm3 (1.4-6.5); GRAN % 77.3 % (42.2-75.2); HEMOGLOBIN 10.5 g/dl (12.5-16.0); LYMPH # 0.7 K/mm3 (1.2-3.4); MEAN CELL VOLUME 109 fl (80.0-100.0); MEAN CORPUSCULAR HEMOGLOBIN 34 pg (27-31); MEAN CORPUSCULAR HGB CONC 31 g/dl (33.0-37.0); MEAN PLATELET VOLUME 9.6 fl (7.4-10.4); MONO # 0.5 K/mm3 (0.1-0.6); MONO % 7.6 % (1.7-9.3); PLATELET COUNT 155 K/mm3 (130-400); RED BLOOD COUNT 3.11 M/mm3 (4.10-5.30); REDCELL DISTRIBUTION WIDTH-CV 13.9 % (11.5-14.5)
[2021-11-12 18:37] LABS: HEMATOCRIT 33.8 % (37.0-47.0)
[2021-11-12 18:43] LABS: PROTHROMBIN TIME 22.9 SECONDS (9.7-12.8)
[2021-11-12 18:54] LABS: COLLECTION METHOD CATHETER
[2021-11-12 19:02] LABS: MUCOUS Present (NOT PRESENT); PH 7 (5-8); SQUAMOUS EPITHELIAL 0-2 /hpf (0-10); URINE APPEARANCE Hazy (CLEAR/HAZY); URINE BACTERIA Occasional /hpf (NONE SEEN); URINE BLOOD 2+ (NEGATIVE); URINE COLOR Yellow (YELLOW); URINE GLUCOSE Negative (NEGATIVE); URINE KETONE Negative (NEGATIVE); URINE NITRATE Negative (NEGATIVE); URINE PROTEIN(semi-quant) 2+ (NEGATIVE); URINE RBC >50 /hpf (0-2); URINE UROBILINOGEN Negative (NEGATIVE)
[2021-11-12 19:02] LABS: ALBUMIN 3.5 gm/dL (3.4-4.8); BILIRUBIN,TOTAL 0.7 mg/dL (0.2-1.2); CREATININE, serum 5.21 mg/dL (0.57-1.11); POTASSIUM 4.6 mmol/L (3.5-4.5)
[2021-11-12] MEDS ORDERED: CEFTIN500 MG PO (19:57)
[2021-11-12 20:11] VITALS: BP 130/89; PULSE 96
[2021-11-15] MEDS ORDERED: LEVAQUIN 5500 MG/TA1 PO (11:37)
== END 2021-11-12 20:16 | disposition home or self-care (01) ==
LOC: COL.ER 17:28
PROVIDERS: Physician Assistant
DX: N39.0 Urinary tract infection, site not specified (principal); I48.91 Unspecified atrial fibrillation; E66.01 Morbid (severe) obesity due to excess calories; Z20.822 Contact with and (suspected) exposure to COVID-19; Z90.49 Acquired absence of other specified parts of digestive tract; Z88.0 Allergy status to penicillin
CPT/HCPCS: J0696

== ENCOUNTER 2022-04-29 06:09 | Outpatient (CLI) | payer MEDICARE ==
[~2022-04-29] VITALS: Ht 167.6 cm; Wt 112.8 kg
[~2022-04-29 06:09] MED LIST changes: +BLUE-EMU LIDOC1 EACH TP; +CEFTIN500 MG PO; +COUMADIN4 MG PO; +LEVAQUIN 5500 MG/TA1 PO; +NATURAL IRON65 MG; +VELPHORO; +ZOLOFT 25MG25 MG PO; -ZOLOFT 50MG50 MG PO
[2022-04-29 07:32] VITALS: BP 158/117; PULSE 86; TEMP 97.9
[2022-04-29] MEDS ORDERED: BENADRYL25 M2 PO (07:38)
[2022-04-29] MEDS ORDERED: PHOSLO667 MG PO (07:40)
[2022-04-29] MEDS ORDERED: LASIX 20MG TABL20 MG PO (07:47)
[2022-04-29] MEDS ORDERED: MELATONIN ER10 MG PO (07:50)
[2022-04-29] MEDS ORDERED: TOPROL XL 50MG50 MG PO (07:51)
[2022-04-29] MEDS ORDERED: VITAMIN B12 781 TAB PO (07:51)
[2022-04-29] MEDS ORDERED: NYSTATIN POWDER15 GM TOP (07:52)
[2022-04-29] MEDS ORDERED: MIRALAX PA17 GM/Dose PO (07:56)
[2022-04-29] MEDS ORDERED: ELIMITE TOP (07:56)
[2022-04-29] MEDS ORDERED: ZOLOFT 50MG50 MG PO (07:57)
[2022-04-29] MEDS ORDERED: ZOLOFT 100MG100 MG PO (07:58)
[2022-04-29] MEDS ORDERED: SODIUM BICARBO650 MG PO (08:00)
[2022-04-29] MEDS ORDERED: COUMADIN4 MG PO (08:01)
[2022-04-29 08:20] LABS: INR 2.4 (0.8-3.0); PROTHROMBIN TIME 28.1 SECONDS (9.7-12.8)
[2022-04-29 08:48] VITALS: BP 189/118; PULSE 72
--- NOTE | 2022-04-29 08:56 | NUR ---
SEE MODERATE SEDATION FLOWSHEET
[2022-04-29 09:57] VITALS: BP 173/121; PULSE 80
[2022-04-29 10:12] VITALS: BP 183/116; PULSE 75
[2022-04-29 10:27] VITALS: BP 189/128; PULSE 67
[2022-04-29 10:42] VITALS: BP 170/126; PULSE 61
--- NOTE | 2022-04-29 11:20 | NUR ---
Discharge instructions given to pt.pt verbalizes understanding.Pt escorted out via wheelchair by this nurse.
== END 2022-04-29 12:19 ==
LOC: COL.CAR 06:09
PROVIDERS: Internal Medicine
DX: T82.49XA Other complication of vascular dialysis catheter, initial encounter (principal); N18.9 Chronic kidney disease, unspecified; Y84.1 Kidney dialysis as the cause of abnormal reaction of the patient, or of later complication, without mention of misadventure at the time of the procedure; Z79.899 Other long term (current) drug therapy
CPT/HCPCS: J1644; J2250; J3010; J3370; J7050

== ENCOUNTER 2023-02-05 23:34 | Emergency (ER) | payer MEDICARE ==
[~2023-02-05] VITALS: Ht 172.7 cm; Wt 135.0 kg
[~2023-02-05 23:34] MED LIST changes: +B-121000 MCG PO; +BENADRYL25 M2 PO; +CARDIZEM CD 12120 MG PO; +COUMADIN 6MG6 MG/TAB PO; +DESYREL 100MG100 MG PO; +ELIMITE TOP; +MEGACE20 MG PO; +MELATONIN ER10 MG PO; +MIRALAX PA17 GM/Dose PO; +NYSTATIN POWDER15 GM TOP; +PERCOCET 325 MG1 TA2 PO; +PROTONIX 40MG T40 MG PO; +REGLAN 5MG T5 MG/TAB PO; +ROXICODONE 55 MG/TAB PO; +VELPHORO PO; +VITAMIN B12 781 TAB PO; +ZOLOFT 100MG100 MG PO; +ZOLOFT 50MG50 MG PO
[2023-02-06 00:04] LABS: HEMOGLOBIN 10.4 g/dl (12.5-16.0); MEAN CELL VOLUME 109 fl (80.0-100.0); MEAN CORPUSCULAR HEMOGLOBIN 35 pg (27-31); MEAN CORPUSCULAR HGB CONC 32 g/dl (33.0-37.0); MEAN PLATELET VOLUME 9.4 fl (7.4-10.4); PLATELET COUNT 70 K/mm3 (130-400); RED BLOOD COUNT 3.01 M/mm3 (4.10-5.30); REDCELL DISTRIBUTION WIDTH-CV 13.5 % (11.5-14.5)
[2023-02-06 00:05] LABS: HEMATOCRIT 32.7 % (37.0-47.0)
[2023-02-06 00:10] LABS: ALBUMIN 2.9 gm/dL (3.4-4.8); BILIRUBIN,TOTAL 0.7 mg/dL (0.2-1.2); CALCIUM 10.2 mg/dL (8.4-10.2); CREATININE, serum 3.57 mg/dL (0.57-1.11); MAGNESIUM 1.7 mg/dL (1.6-2.6); PHOSPHOROUS 2.3 mg/dL (2.3-4.7); POTASSIUM 3.5 mmol/L (3.5-4.5); TOTAL PROTEIN 6.8 gm/dL (6.2-8.1)
[2023-02-06 00:11] LABS: INR 6.6 (0.8-3.0)
[2023-02-06 00:12] LABS: PARTIAL THROMBOPLASTIN TIME 48.9 SECONDS (26.0-37.0)
[2023-02-06 00:17] LABS: TROPONIN-I 0.08 ng/mL (0.00-0.033)
--- NOTE | 2023-02-06 00:40 | NUR ---
PT INTUBATED @APPROXIMATELY 2350 7.5 ETT 24@ GUMS BY DR. LANGSTON ETCO2 HAD COLOR CHANGE BS AND CXR VERIFIED PLACEMENT. PLACED ON VENTILATOR PER CHARTED SETTINGS.
[2023-02-06 00:46] LABS: BAND 9 % (0-10); EOSINOPHIL 1 % (0-4); LYMPHOCYTE 36 % (20.0-51.0); NEUTROPHILS 50 % (42.0-75.2)
[2023-02-06 00:47] LABS: PLATELET ESTIMATE DECREASED (NORMAL)
--- NOTE | 2023-02-06 00:50 | NUR ---
PT INTUBATED WITH 7.5 ETT BY @ 1609. ETT 24@ GUM. POSITIVE COLOR CHANGE NOTED.
[2023-02-06 01:30] VITALS: TEMP 101.7
[2023-02-06 03:37] LABS: COLLECTION METHOD IN
[2023-02-06 03:54] LABS: PH >= 9.0 (5.0-8.5); URINE APPEARANCE Turbid (CLEAR/HAZY); URINE BLOOD 2+ (NEGATIVE); URINE COLOR Yellow (YELLOW); URINE GLUCOSE Negative (NEGATIVE); URINE KETONE Negative (NEGATIVE); URINE NITRATE Negative (NEGATIVE); URINE PROTEIN(semi-quant) 3+ (NEGATIVE); URINE UROBILINOGEN 0.2 E.U/dL (0.2-1.0)
[2023-02-06 04:10] VITALS: BP 106/36; PULSE 84
[2023-02-06 04:13] LABS: AMORPHOUS CRYSTAL Present (NOT PRESENT); MUCOUS Present (NOT PRESENT); SQUAMOUS EPITHELIAL 0-2 /hpf (0-10)
[2023-02-06 04:14] LABS: URINE BACTERIA Many /hpf (NONE SEEN)
== END 2023-02-06 04:10 | disposition short-term general hospital (02) ==
LOC: COL.ER 23:34
PROVIDERS: Emergency Medicine
DX: I46.9 Cardiac arrest, cause unspecified (principal); E87.20 Acidosis, unspecified; D72.819 Decreased white blood cell count, unspecified
CPT/HCPCS: A4314; J1956; J2704; J3010; J3475; J7030; J7060